=== PATIENT | male | born 1975 | race Asian ===

== ENCOUNTER 2021-01-06 11:18 | Inpatient (IN) ==
[2021-01-06] MEDS ORDERED: ACETAMINOPHEN 500 MG TAB PO STA (12:23)
[2021-01-06] MEDS ORDERED: SODIUM CHLORIDE 0.9% 1000ML 1,000 ML IV ONE ×3 (12:23→14:33)
--- NOTE | 2021-01-06 12:27 | Emergency Department Note ---
History of Present Illness General Chief complaint: Unable to Void Stated complaint: FEVER,CHILLS,CAN'T PEE X1DAY,NEG COVID TEST 8-18 Time Seen by Provider: 01/06/21 12:01 Source: patient Mode of arrival: ambulatory Limitations: no limitations History of Present Illness Maximum Pain Intensity: 8 This patient is a 45-year-old male who presents to the emergency department for evaluation of fevers and decreased urination. Patient states that he has had a consistent fever for the past 5 days. Temperatures have been around 103 F and decreased slightly with Tylenol/ibuprofen, but never completely resolved. He pittman s some body aches, some abdominal and back pain. He has had diarrhea which started yesterday. Patient was seen at the [facility] emergency department 2 days ago and had blood work performed, which showed slight elevations of his liver functions and kidney function. He had a negative COVID-19 test at that time. He had a urinalysis but they have not yet received the results of this. Patient reports he has had decreased urination since yesterday. He has not urinated in the past 9 hours, despite drinking plenty of fluids. He reports body aches at this time and rates his discomfort an 8/10. He denies any neck pain/stiffness or headache. He denies any recent tick bites. Denies cough or shortness of breath. Home Medications Medication Instructions Recorded Confirmed Type acetaminophen 500 mg tablet 500 mg PO Q6H PRN 01/06/21 01/06/21 History (Tylenol Extra Strength) esomeprazole magnesium 20 mg 20 mg PO DAILY 01/06/21 01/06/21 History capsule,delayed release (Nexium) Allergies Allergy/AdvReac Type Severity Reaction Status Date / Time shellfish derived Allergy Severe Swelling Unverified 01/06/21 13:41 including Face Egg Derived Allergy Intermediate Abdominal Unverified 01/06/21 13:41 Pain and Constipation Past Med/Surg History Medical History No significant past medical history Surgical History No significant past surgical history Social History Smoking Status: Current every day smoker Tobacco Type: Cigarettes Hx Alcohol Use: No Hx Substance Use: No Preferred Language: Tuvaluan Communication Ability: Effective Template Reproduction Technician Required: No Beliefs That Will Affect Care: None Current Living Situation: Spouse Feels Safe at Home: Yes Safety Concerns: Feels Safe At This Time Review of Systems A total of 10 systems reviewed and were otherwise negative Physical Exam Vital Signs Vital Signs - 24 hr 01/06/21 11:22 01/06/21 11:57 01/06/21 12:02 Temperature 37.1 C 39.4 C H Temperature Source Temporal Artery Scan Oral Pulse Rate 124 H 123 H Pulse Rate [Left Apical] 122 H Pulse Rate from SpO2 Sensor 124 H Pulse Rhythm Regular Pulse Rhythm [Left Apical] Regular Pulse Strength Normal Pulse Strength [Left Apical] Normal Respiratory Rate 19 22 25 H Respiratory Effort / Characteristics Non-Labored Spontaneous Non-Labored Spontaneous Respiratory Depth Normal Normal Respiratory Pattern Regular Regular Blood Pressure 107/71 119/71 Blood Pressure [Left Arm] 119/71 Blood Pressure Mean 83 87 Blood Pressure Mean [Left Arm] 87 Blood Pressure Position [Left Arm] Lying Pulse Oximetry 96 92 92 Oxygen Delivery Method Room Air Room Air Sepsis Recent Fever Within 48 Hours No Sepsis New/Unexplained Change in Mental Status No Sepsis Action Taken by Nursing No Action Required 01/06/21 12:15 01/06/21 12:30 01/06/21 12:45 Temperature Temperature Source Pulse Rate 121 H 120 H 117 H Pulse Rate [Left Apical] Pulse Rate from SpO2 Sensor 121 H 119 H 117 H Pulse Rhythm Pulse Rhythm [Left Apical] Pulse Strength Pulse Strength [Left Apical] Respiratory Rate 18 23 24 Respiratory Effort / Characteristics Respiratory Depth Respiratory Pattern Blood Pressure 133/71 108/69 114/68 Blood Pressure [Left Arm] Blood Pressure Mean 91 82 83 Blood Pressure Mean [Left Arm] Blood Pressure Position [Left Arm] Pulse Oximetry 91 95 94 Oxygen Delivery Method Sepsis Recent Fever Within 48 Hours Sepsis New/Unexplained Change in Mental Status Sepsis Action Taken by Nursing 01/06/21 13:00 01/06/21 14:22 01/06/21 14:30 Temperature 37.5 C Temperature Source Pulse Rate 113 H 108 H 108 H Pulse Rate [Left Apical] Pulse Rate from SpO2 Sensor 113 H 108 H 107 H Pulse Rhythm Pulse Rhythm [Left Apical] Pulse Strength Pulse Strength [Left Apical] Respiratory Rate 22 36 H 27 H Respiratory Effort / Characteristics Respiratory Depth Respiratory Pattern Blood Pressure 90/54 L 109/64 105/59 L Blood Pressure [Left Arm] Blood Pressure Mean 66 79 74 Blood Pressure Mean [Left Arm] Blood Pressure Position [Left Arm] Pulse Oximetry 94 94 94 Oxygen Delivery Method Sepsis Recent Fever Within 48 Hours Sepsis New/Unexplained Change in Mental Status Sepsis Action Taken by Nursing 01/06/21 14:45 01/06/21 15:00 01/06/21 16:00 Temperature Temperature Source Pulse Rate 106 H 105 H 103 H Pulse Rate [Left Apical] Pulse Rate from SpO2 Sensor 105 H 106 H 104 H Pulse Rhythm Pulse Rhythm [Left Apical] Pulse Strength Pulse Strength [Left Apical] Respiratory Rate 17 22 24 Respiratory Effort / Characteristics Respiratory Depth Respiratory Pattern Blood Pressure 93/63 L 107/68 103/76 Blood Pressure [Left Arm] Blood Pressure Mean 73 81 85 Blood Pressure Mean [Left Arm] Blood Pressure Position [Left Arm] Pulse Oximetry 94 95 94 Oxygen Delivery Method Sepsis Recent Fever Within 48 Hours Sepsis New/Unexplained Change in Mental Status Sepsis Action Taken by Nursing 01/06/21 16:15 01/06/21 16:30 01/06/21 16:45 Temperature Temperature Source Pulse Rate 102 H 102 H 105 H Pulse Rate [Left Apical] Pulse Rate from SpO2 Sensor 103 H 101 H 105 H Pulse Rhythm Pulse Rhythm [Left Apical] Pulse Strength Pulse Strength [Left Apical] Respiratory Rate 29 H 22 26 H Respiratory Effort / Characteristics Respiratory Depth Respiratory Pattern Blood Pressure 95/70 L 92/73 L 101/85 Blood Pressure [Left Arm] Blood Pressure Mean 78 79 90 Blood Pressure Mean [Left Arm] Blood Pressure Position [Left Arm] Pulse Oximetry 94 95 94 Oxygen Delivery Method Sepsis Recent Fever Within 48 Hours Sepsis New/Unexplained Change in Mental Status Sepsis Action Taken by Nursing 01/06/21 17:00 Temperature Temperature Source Pulse Rate 105 H Pulse Rate [Left Apical] Pulse Rate from SpO2 Sensor 104 H Pulse Rhythm Pulse Rhythm [Left Apical] Pulse Strength Pulse Strength [Left Apical] Respiratory Rate 25 H Respiratory Effort / Characteristics Respiratory Depth Respiratory Pattern Blood Pressure 94/64 L Blood Pressure [Left Arm] Blood Pressure Mean 74 Blood Pressure Mean [Left Arm] Blood Pressure Position [Left Arm] Pulse Oximetry 95 Oxygen Delivery Method Sepsis Recent Fever Within 48 Hours Sepsis New/Unexplained Change in Mental Status Sepsis Action Taken by Nursing VITALS: Vitals are noted on the nurse's note and reviewed by myself. GENERAL: This is a 45-year-old male, ill-appearing, slightly diaphoretic. SKIN: The skin was without rashes. EARS: External auditory canals clear, tympanic membranes pearly glass without erythema or effusion bilaterally. EYES: Pupils equal round and reactive to light and accommodation. NOSE: Patent, turbinates without inflammation or discharge. MOUTH: Mucous membranes moist. Tonsils are not enlarged. Pharynx without erythema or exudate. NECK: Supple without nuchal rigidity. No lymphadenopathy. HEART: Tachycardic, regular rhythm without murmurs gallops or rubs. LUNGS: Clear to auscultation bilaterally without wheezes, rales or rhonchi. No retractions or accessory muscle use. ABDOMEN: Positive bowel sounds x 4. Soft, mild suprapubic tenderness to palpation. NEURO: Patient was alert and oriented to person place and time. Course Consultations Consultation #1: Dr. Reyes - [facility] [place] hospitalist Consultation #2: Dr. Bolton - general surgery Administered Medications Lactated Ringer's (Lr) 1,000 mls @ 150 mls/hr IV .Q6H40M EVIE Stop: 01/07/21 08:56 Last Admin: 01/06/21 21:04 Dose: 150 mls/hr Documented by: [id number] Discontinued Medications Acetaminophen (Acetaminophen 500 Mg Tab) 1,000 mg PO NOW STA Stop: 01/06/21 12:24 Last Admin: 01/06/21 12:34 Dose: 1,000 mg Documented by: [id number] Diphenhydramine HCl (Diphenhydramine 50 Mg/Ml Vial) 25 mg IV NOW STA Stop: 01/06/21 14:35 Last Admin: 01/06/21 15:10 Dose: 25 mg Documented by: [id number] Sodium Chloride (Nss 1000ml) 1,000 mls @ 999 mls/hr IV .Q1H1M ONE Stop: 01/06/21 13:23 Last Infusion: 01/06/21 13:36 Dose: 0 mls/hr Documented by: [id number] Admin: 01/06/21 12:35 Dose: 999 mls/hr Documented by: [id number] Ceftriaxone Sodium (Rocephin) 2,000 mg in 70 mls @ 140 mls/hr IV NOW STA Stop: 01/06/21 13:40 Last Infusion: 01/06/21 14:28 Dose: 0 mls/hr Documented by: [id number] Admin: 01/06/21 13:36 Dose: 140 mls/hr Documented by: [id number] Sodium Chloride (Nss 1000ml) 1,000 mls @ 999 mls/hr IV .Q1H1M ONE Stop: 01/06/21 14:11 Last Infusion: 01/06/21 14:28 Dose: 0 mls/hr Documented by: [id number] Admin: 01/06/21 13:36 Dose: 999 mls/hr Documented by: [id number] Sodium Chloride (Nss 1000ml) 500 mls @ 999 mls/hr IV .Q31M ONE Stop: 01/06/21 13:41 Last Admin: 01/06/21 17:05 Dose: Not Given Documented by: [id number] Doxycycline Hyclate 100 mg/ (Dextrose) 110 mls @ 50 mls/hr IV NOW STA Stop: 01/06/21 15:22 Last Infusion: 01/06/21 17:05 Dose: 0 mls/hr Documented by: [id number] Admin: 01/06/21 14:27 Dose: 50 mls/hr Documented by: [id number] Sodium Chloride (Nss 1000ml) 1,000 mls @ 999 mls/hr IV .Q1H1M ONE Stop: 01/06/21 15:33 Last Infusion: 01/06/21 17:05 Dose: 0 mls/hr Documented by: [id number] Admin: 01/06/21 15:10 Dose: 999 mls/hr Documented by: [id number] Piperacillin Sod/Tazobactam (Sod 4.5 gm/ Dextrose) 120 mls @ 240 mls/hr IV NOW ONE; Protocol Stop: 01/06/21 20:29 Last Infusion: 01/06/21 21:04 Dose: 0 mls/hr Documented by: [id number] Admin: 01/06/21 20:22 Dose: 240 mls/hr Documented by: [id number] Ioversol (Optiray 320 100ml) 94 ml IV ONCE ONE Stop: 01/06/21 14:50 Last Admin: 01/06/21 14:49 Dose: 1 ml Documented by: [id number] Levalbuterol HCl (Levalbuterol Hcl 0.63 Mg/3 Ml Neb) 0.63 mg NEB NOW STA Stop: 01/06/21 23:39 Last Admin: 01/07/21 00:00 Dose: 0.63 mg Documented by: [id number] Critical Care Time Critical Care Time: Yes Total Critical Care Time: 32 I have personally spent greater than 32 minutes of critical care time in the direct management of this patient. This includes bedside care, interpretation of diagnostic studies, and testing, discussion with consultants, patient, and family members, and other required patient management activities. This 32 minutes is in excess of all separately billable procedures. Medical Decision Making Differential Diagnosis Viral syndrome, otitis, pharyngitis, pneumonia, influenza, meningitis, urinary tract infection, sepsis, bacteremia, as well as other pathologies. Home Medications Current Medication List: was personally reviewed by me Laboratory Data Attestation: I reviewed the patient's lab results. Result diagrams: 01/06/21 12:00 01/06/21 12:00 Lab Results 01/06/21 01/06/21 01/06/21 Range/Units 12:00 12:00 12:00 WBC 22.13 H (4.8-10.8) K/uL RBC 4.64 L (4.7-6.1) M/uL Hgb 14.0 (14.0-18.0) g/dL Hct 40.2 L (42-52) % MCV 86.6 (80-100) fL MCH 30.2 (25-34) pg MCHC 34.8 (32-36) g/dL RDW Std Deviation 44.2 (36.4-46.3) fL RDW Coeff of Omar 14.0 (11.5-14.5) % Plt Count 240 (130-400) K/uL MPV 11.0 H (7.4-10.4) fL Immature Gran % (Auto) 1.1 % Neut % (Auto) 87.8 % Lymph % (Auto) 7.5 % Mcdonald % (Auto) 3.4 % Eos % (Auto) 0.1 % Baso % (Auto) 0.1 % Neut # (Auto) 19.42 H (1.4-6.5) K/uL Lymph # (Auto) 1.66 (1.2-3.4) K/uL Mcdonald # (Auto) 0.76 H (0.11-0.59) K/uL Eos # (Auto) 0.02 (0-0.5) K/uL Baso # (Auto) 0.02 (0-0.2) K/uL Immature Gran # (Auto) 0.25 H (0.00-0.02) K/uL Hypogranular Neuts 1+ Toxic Granulation 1+ Toxic Vacuolation 1+ Sodium 128 L (136-145) mmol/L Potassium 3.5 (3.5-5.1) mmol/L Chloride 96 L (98-107) mmol/L Carbon Dioxide 23 (21-32) mmol/L Anion Gap 9.0 (3-11) BUN 11 (7-18) mg/dl Creatinine 1.53 H (0.6-1.4) mg/dl Est Cr Clr Drug Dosing 75.1 ml/min Est GFR ( Amer) 62.7 ml/min Est GFR (Non-Af Amer) 54.1 ml/min BUN/Creatinine Ratio 6.9 L (10-20) Glucose 120 H (70-99) mg/dl Osmolality (280-300) mOsm/kg Lactate 1.3 (0.4-2.0) mmol/L Calcium 8.7 (8.5-10.1) mg/dl Magnesium (1.8-2.4) mg/dl Total Bilirubin 2.3 H (0.2-1) mg/dl AST 59 H (15-37) U/L ALT 77 (12-78) U/L Alkaline Phosphatase 121 H (45-117) U/L Total Creatine Kinase (39-308) U/L Total Protein 8.0 (6.4-8.2) gm/dl Albumin 3.0 L (3.4-5.0) gm/dl Globulin 5.0 H (2.5-4.0) gm/dl Albumin/Globulin Ratio 0.6 L (0.9-2) Lipase (73-393) U/L Procalcitonin (0-0.5) ng/ml Urine Color Urine Appearance (Clear) Urine pH (4.5-7.5) Ur Specific [place] (1.000-1.030) Urine Protein (Negative) Urine Glucose (UA) (Negative) Urine Ketones (Negative) Urine Blood (Negative) Urine Nitrite (Negative) Urine Bilirubin (Negative) Urine Urobilinogen (Negative) Ur Leukocyte Esterase (Negative) Urine WBC (Auto) (0-5) /hpf Urine RBC (Auto) (0-4) /hpf U Hyaline Cast (Auto) (0-5) /lpf U Epithel Cells (Auto) (0-5) /lpf Urine Bacteria (Auto) (Negative) Ur Renal Epithelial Cell Granular Casts (0) /lpf WBC Casts (0) /lpf Urine Yeast Anaplasma Smear See Comment Lyme Disease IgG Ab (Negative) Lyme Disease IgM Ab (Negative) COVID-19 Eval Order SARS-CoV-2 (PCR) (Negative) 01/06/21 01/06/21 01/06/21 Range/Units 12:00 12:00 12:00 WBC (4.8-10.8) K/uL RBC (4.7-6.1) M/uL Hgb (14.0-18.0) g/dL Hct (42-52) % MCV (80-100) fL MCH (25-34) pg MCHC (32-36) g/dL RDW Std Deviation (36.4-46.3) fL RDW Coeff of Omar (11.5-14.5) % Plt Count (130-400) K/uL MPV (7.4-10.4) fL Immature Gran % (Auto) % Neut % (Auto) % Lymph % (Auto) % Mcdonald % (Auto) % Eos % (Auto) % Baso % (Auto) % Neut # (Auto) (1.4-6.5) K/uL Lymph # (Auto) (1.2-3.4) K/uL Mcdonald # (Auto) (0.11-0.59) K/uL Eos # (Auto) (0-0.5) K/uL Baso # (Auto) (0-0.2) K/uL Immature Gran # (Auto) (0.00-0.02) K/uL Hypogranular Neuts Toxic Granulation Toxic Vacuolation Sodium (136-145) mmol/L Potassium (3.5-5.1) mmol/L Chloride (98-107) mmol/L Carbon Dioxide (21-32) mmol/L Anion Gap (3-11) BUN (7-18) mg/dl Creatinine (0.6-1.4) mg/dl Est Cr Clr Drug Dosing ml/min Est GFR ( Amer) ml/min Est GFR (Non-Af Amer) ml/min BUN/Creatinine Ratio (10-20) Glucose (70-99) mg/dl Osmolality (280-300) mOsm/kg Lactate (0.4-2.0) mmol/L Calcium (8.5-10.1) mg/dl Magnesium (1.8-2.4) mg/dl Total Bilirubin (0.2-1) mg/dl AST (15-37) U/L ALT (12-78) U/L Alkaline Phosphatase (45-117) U/L Total Creatine Kinase 708 H (39-308) U/L Total Protein (6.4-8.2) gm/dl Albumin (3.4-5.0) gm/dl Globulin (2.5-4.0) gm/dl Albumin/Globulin Ratio (0.9-2) Lipase 439 H (73-393) U/L Procalcitonin (0-0.5) ng/ml Urine Color Urine Appearance (Clear) Urine pH (4.5-7.5) Ur Specific [place] (1.000-1.030) Urine Protein (Negative) Urine Glucose (UA) (Negative) Urine Ketones (Negative) Urine Blood (Negative) Urine Nitrite (Negative) Urine Bilirubin (Negative) Urine Urobilinogen (Negative) Ur Leukocyte Esterase (Negative) Urine WBC (Auto) (0-5) /hpf Urine RBC (Auto) (0-4) /hpf U Hyaline Cast (Auto) (0-5) /lpf U Epithel Cells (Auto) (0-5) /lpf Urine Bacteria (Auto) (Negative) Ur Renal Epithelial Cell Granular Casts (0) /lpf WBC Casts (0) /lpf Urine Yeast Anaplasma Smear Lyme Disease IgG Ab Negative (Negative) Lyme Disease IgM Ab Negative (Negative) COVID-19 Eval Order SARS-CoV-2 (PCR) (Negative) 01/06/21 01/06/21 01/06/21 Range/Units 12:00 12:00 12:00 WBC (4.8-10.8) K/uL RBC (4.7-6.1) M/uL Hgb (14.0-18.0) g/dL Hct (42-52) % MCV (80-100) fL MCH (25-34) pg MCHC (32-36) g/dL RDW Std Deviation (36.4-46.3) fL RDW Coeff of Omar (11.5-14.5) % Plt Count (130-400) K/uL MPV (7.4-10.4) fL Immature Gran % (Auto) % Neut % (Auto) % Lymph % (Auto) % Mcdonald % (Auto) % Eos % (Auto) % Baso % (Auto) % Neut # (Auto) (1.4-6.5) K/uL Lymph # (Auto) (1.2-3.4) K/uL Mcdonald # (Auto) (0.11-0.59) K/uL Eos # (Auto) (0-0.5) K/uL Baso # (Auto) (0-0.2) K/uL Immature Gran # (Auto) (0.00-0.02) K/uL Hypogranular Neuts Toxic Granulation Toxic Vacuolation Sodium (136-145) mmol/L Potassium (3.5-5.1) mmol/L Chloride (98-107) mmol/L Carbon Dioxide (21-32) mmol/L Anion Gap (3-11) BUN (7-18) mg/dl Creatinine (0.6-1.4) mg/dl Est Cr Clr Drug Dosing ml/min Est GFR ( Amer) ml/min Est GFR (Non-Af Amer) ml/min BUN/Creatinine Ratio (10-20) Glucose (70-99) mg/dl Osmolality 266 L (280-300) mOsm/kg Lactate (0.4-2.0) mmol/L Calcium (8.5-10.1) mg/dl Magnesium 2.1 (1.8-2.4) mg/dl Total Bilirubin (0.2-1) mg/dl AST (15-37) U/L ALT (12-78) U/L Alkaline Phosphatase (45-117) U/L Total Creatine Kinase (39-308) U/L Total Protein (6.4-8.2) gm/dl Albumin (3.4-5.0) gm/dl Globulin (2.5-4.0) gm/dl Albumin/Globulin Ratio (0.9-2) Lipase (73-393) U/L Procalcitonin 6.54 H (0-0.5) ng/ml Urine Color Urine Appearance (Clear) Urine pH (4.5-7.5) Ur Specific [place] (1.000-1.030) Urine Protein (Negative) Urine Glucose (UA) (Negative) Urine Ketones (Negative) Urine Blood (Negative) Urine Nitrite (Negative) Urine Bilirubin (Negative) Urine Urobilinogen (Negative) Ur Leukocyte Esterase (Negative) Urine WBC (Auto) (0-5) /hpf Urine RBC (Auto) (0-4) /hpf U Hyaline Cast (Auto) (0-5) /lpf U Epithel Cells (Auto) (0-5) /lpf Urine Bacteria (Auto) (Negative) Ur Renal Epithelial Cell Granular Casts (0) /lpf WBC Casts (0) /lpf Urine Yeast Anaplasma Smear Lyme Disease IgG Ab (Negative) Lyme Disease IgM Ab (Negative) COVID-19 Eval Order SARS-CoV-2 (PCR) (Negative) 01/06/21 01/06/21 01/06/21 Range/Units 12:20 12:44 12:44 WBC (4.8-10.8) K/uL RBC (4.7-6.1) M/uL Hgb (14.0-18.0) g/dL Hct (42-52) % MCV (80-100) fL MCH (25-34) pg MCHC (32-36) g/dL RDW Std Deviation (36.4-46.3) fL RDW Coeff of Omar (11.5-14.5) % Plt Count (130-400) K/uL MPV (7.4-10.4) fL Immature Gran % (Auto) % Neut % (Auto) % Lymph % (Auto) % Mcdonald % (Auto) % Eos % (Auto) % Baso % (Auto) % Neut # (Auto) (1.4-6.5) K/uL Lymph # (Auto) (1.2-3.4) K/uL Mcdonald # (Auto) (0.11-0.59) K/uL Eos # (Auto) (0-0.5) K/uL Baso # (Auto) (0-0.2) K/uL Immature Gran # (Auto) (0.00-0.02) K/uL Hypogranular Neuts Toxic Granulation Toxic Vacuolation Sodium (136-145) mmol/L Potassium (3.5-5.1) mmol/L Chloride (98-107) mmol/L Carbon Dioxide (21-32) mmol/L Anion Gap (3-11) BUN (7-18) mg/dl Creatinine (0.6-1.4) mg/dl Est Cr Clr Drug Dosing ml/min Est GFR ( Amer) ml/min Est GFR (Non-Af Amer) ml/min BUN/Creatinine Ratio (10-20) Glucose (70-99) mg/dl Osmolality (280-300) mOsm/kg Lactate (0.4-2.0) mmol/L Calcium (8.5-10.1) mg/dl Magnesium (1.8-2.4) mg/dl Total Bilirubin (0.2-1) mg/dl AST (15-37) U/L ALT (12-78) U/L Alkaline Phosphatase (45-117) U/L Total Creatine Kinase (39-308) U/L Total Protein (6.4-8.2) gm/dl Albumin (3.4-5.0) gm/dl Globulin (2.5-4.0) gm/dl Albumin/Globulin Ratio (0.9-2) Lipase (73-393) U/L Procalcitonin (0-0.5) ng/ml Urine Color [place] Urine Appearance Cloudy A (Clear) Urine pH 5.5 (4.5-7.5) Ur Specific [place] 1.026 (1.000-1.030) Urine Protein 3+ H (Negative) Urine Glucose (UA) Trace H (Negative) Urine Ketones Trace H (Negative) Urine Blood 3+ H (Negative) Urine Nitrite Positive A (Negative) Urine Bilirubin 2+ H (Negative) Urine Urobilinogen Negative (Negative) Ur Leukocyte Esterase 1+ H (Negative) Urine WBC (Auto) 10-30 H (0-5) /hpf Urine RBC (Auto) 5-10 H (0-4) /hpf U Hyaline Cast (Auto) >30 H (0-5) /lpf U Epithel Cells (Auto) >30 H (0-5) /lpf Urine Bacteria (Auto) Negative (Negative) Ur Renal Epithelial Cell Not Reportable Granular Casts >30 H (0) /lpf WBC Casts 1-5 H (0) /lpf Urine Yeast Not Reportable Anaplasma Smear Lyme Disease IgG Ab (Negative) Lyme Disease IgM Ab (Negative) COVID-19 Eval Order Covid19 at [facility] [place] SARS-CoV-2 (PCR) NEGATIVE (Negative) Imaging Data Attestation: I personally reviewed and interpreted this imaging study as follows: Radiologist's Impression: Abdomen/Pelvis CT 01/06/21 12:23 CT SCAN OF THE ABDOMEN AND PELVIS WITHOUT CONTRAST CLINICAL HISTORY: abdominal/back pain, fever COMPARISON STUDY: No previous studies for comparison. TECHNIQUE: CT scan of the abdomen and pelvis was performed from the lung bases to the proximal femurs. Images are reviewed in the axial, sagittal, and coronal planes. IV contrast was not administered for this examination. A dose lowering technique was utilized adhering to the principles of ALARA. CT DOSE: 1325.31 mGy.cm FINDINGS: Lower chest: Minimal atelectasis is seen at dependent portion of the right lower lobe. Liver: The unenhanced liver is enlarged measuring 20.9 cm in anterior-posterior dimension and shows diffuse decrease in attenuation of its parenchyma. No evidence of focal lesions or intrahepatic biliary dilatation. Gallbladder: Unremarkable. Spleen: Normal in size and attenuation. Pancreas: There is loss of normal pancreatic contour at the region of pancreatic body and uncinate process with diffuse surrounding fat stranding which also extends to the lower abdomen and pelvic region and associated with multiple prom inent lymph nodes. Adrenal glands: Unremarkable. Kidneys: The unenhanced kidneys are normal in size. No definite hydronephrosis is seen. No renal calculi are identified. Asymmetrical fat stranding is seen surrounding right kidney. Bowel: Loops of bowel are nondilated. Possibly small duodenal diverticulum is demonstrated. Evaluation is suboptimal due to lack of IV contrast. Appendix is slightly dilated measuring up to 10 mm in diameter. No definite periappendiceal abscess/fluid collection is seen however there is diffuse fat stranding within the right lower quadrant appear to be continuous with peripancreatic fat s tranding. Peritoneum: There is no intraperitoneal free air or abdominal ascites. Vasculature: The abdominal aorta is normal in course and caliber. Adenopathy: Innumerable retroperitoneal lymph nodes measuring up to 1.3 cm in short axis. Pelvic viscera: Urinary bladder is decompressed which limits evaluation. Prostate gland is not enlarged. Skeletal structures: No definite aggressive osseous lesions are seen. IMPRESSION: 1. Mesenteric fat stranding involving pancreatic head and uncinate process also extend into the right lower quadrant and also associated with dilated appendix could be due to inflammatory processes such as pancreatitis or developing appendicitis however due to prominent lymphadenopathy findings are concerning for neoplastic process which might involve pancreas, appendix or duodenum. Farhana luation is suboptimal due to lack of IV contrast. Further evaluation with contrast CT of the abdomen and pelvis is recommended. Findings will be sent to emergency Department. 2. Hepatomegaly. Hepatic steatosis. 3. The rest of findings as above. ACT 112: Negative or not required by law. The above report was generated using voice recognition software. It may contain grammatical, syntax or spelling errors. Electronically signed by: Aracelis Au DO 01/06/2021 2:19 PM Chest X-Ray 01/06/21 12:36 SINGLE VIEW CHEST CLINICAL HISTORY: Fever. FINDINGS: An AP, portable, upright chest radiograph is obtained. No prior studies are available for comparison at the time of dictation. The cardiomedia stinal silhouette is unremarkable. There is elevation of the right hemidiaphragm. The lungs and pleural spaces are clear. No pneumothorax is seen. The bony thorax is grossly intact. IMPRESSION: No active disease in the chest. ACT 112: Negative or not required by law. Electronically signed by: Bharath Whitley M.D. 01/06/2021 1:17 PM Abdomen/Pelvis CT 01/06/21 14:33 CT abd pelvis IV con only CLINICAL HISTORY: abdominal pain, fever COMPARISON STUDY: Noncontrast CT of the abdomen and pelvis performed on January 06, 2021 at 13:24 hours. TECHNIQUE: A dose lowering technique was utilized adhering to the principles of ALARA. CT DOSE: 1322.68 mGy.cm FINDINGS: Lower chest: Interval worsening of atelectasis within right lower lobe.. Liver: The contrast-enhanced liver is normal in size, contour, and attenuation. There is no intrahepatic biliary ductal dilatation. The hepatic veins and portal veins are patent. Recently seen hepatic steatosis is not visualized on this enhanced exam. Gallbladder: Unremarkable. Spleen: Normal in size and attenuation. Pancreas: Contrast-enhanced pancreas shows normal appearance and show no evid ence of hyper or hypoattenuating mass lesions or dilatation of the pancreatic duct. There is mild fat stranding surrounding pancreas and adjacent nondilated portion of the duodenum. Adrenal glands: Unremarkable. Kidneys: There is symmetric renal cortical enhancement. The kidneys are normal in size without hydronephrosis.Mild perinephric fat stranding is seen mostly on the right. Pelvic viscera: The bladder, and pelvic viscera are unremarkable. Bowel: Bowel loops are nondilated. Dilated appendix measure up to 1.1 cm in size with surrounding fat stranding and multiple prominent lymph nodes. No evidence of fluid collection within right lower quadrant. Peritoneum: There is no intraperitoneal free air or abdominal ascites. Redemonstration of peripancreatic fat stranding which also involve adjacent loop of bowel and extending to the right lower quadrant and associated with multiple prominent lymph nodes. There is 1.1 cm rounded soft tissue lesion within left upper quadrant concerning for metastatic process. Vasculature: The abdominal aorta is normal in course and caliber. Adenopathy: Innumerable retroperitoneal lymph nodes are seen measuring up to 1.1 cm in size, seen predominantly within mid abdominal region Skeletal structures: No destructive osseous lesions are seen. IMPRESSION: 1. No evidence of focal pancreatic lesion to suggest neoplastic process. Diffuse peripancreatic fat stranding which also extend to adjacent loops of bowel and to the right lower quadrant might represent acute pancreatitis or/and duodenitis. Presence of multiple prominent retroperitoneal and mesenteric lymph nodes is also concerning for neoplastic process. Appendix is dilated without gas within its lumen and no surrounding fluid collection to suggest abscess formation. Differential diagnosis include neoplasm or acute appendicitis. Nodule within left upper quadrant might represent metastatic lesion. 2. Interval worsening of atelectasis within the right lower lobe. ACT 112: Negative or not required by law. The above report was generated using voice recognition software. It may contain grammatical, syntax or spelling errors. 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 Patient was noted to be in sinus tachycardia at an initial rate of 120 bpm. The patient is a 45-year-old male who presents today complaining of a fever which has been ongoing for the past 5 days. Patient is ill-appearing on arrival here. He is tachycardic and has a temperature of 39.5 C. He does meet sepsis criteria. He was given 3 L of IV fluids to meet the 30 mL/kg based on his ideal body weight. Blood cultures were drawn. Labs revealed a leukocytosis of 22,000, hyponatremia, mild elevation of his creatinine and elevation of LFTs. Initial testing for tickborne illness was negative. Urinalysis suggestive of possible infection, with positive nitrite, however bacteria were negative. Of note, patient did have a urinalysis performed at [facility] 2 days ago. This did appear to be possibly infected, however the culture was negative. A CT of the abdomen/pelvis was performed, initially without contrast which show ed questionable findings, CT with contrast was advised. A CT with IV contrast was performed and showed questionable pancreatitis/duodenitis as well as dilatation of the appendix concerning for possible appendicitis versus neoplasm. Patient also noted to have several enlarged lymph nodes within the abdomen. The case was discussed with general surgery, who will consult on the patient. Patient's vital signs did improve somewhat with IV fluid administration. He was given IV Rocephin as well as doxycycline on arrival for possible tickborne illness versus urinary tract infection. [facility] agreed to evaluate the patient for further care. Impression & Plan Sepsis, Pancreatitis, Leukocytosis, Acute hyponatremia Discharge Plan Visit Data Chief Complaint: Unable to Void Stated Complaint: FEVER,CHILLS,CAN'T PEE X1DAY,NEG COVID TEST 8-18 ED Provider: [facility] Midlevel Provider: Jeannine Thomason Discharge Problem: Sepsis, Pancreatitis, Leukocytosis, Acute hyponatremia Patient Disposition: Admitted As Inpatient Discharge Instructions Interventions: ED Discharge Assessment Last Done: 01/06/21 18:31
[2021-01-06 12:32] LABS: Basophils # (auto) 0.02 K/uL (0-0.2); Basophils % (auto) 0.1 %; Eosinophils # (auto) 0.02 K/uL (0-0.5); Eosinophils % (auto) 0.1 %; Hematocrit (blood only) 40.2 % (42-52); Immature Granulocytes # (auto) 0.25 K/uL (0.00-0.02); Immature Granulocytes % (auto) 1.1 %; Lymphocytes # (auto) 1.66 K/uL (1.2-3.4); Lymphocytes % (auto) 7.5 %; Mean Corpuscular Hemoglobin 30.2 pg (25-34); Mean Corpuscular Hgb Conc 34.8 g/dL (32-36); Mean Corpuscular Volume 86.6 fL (80-100); Monocytes # (auto) 0.76 K/uL (0.11-0.59); Monocytes % (auto) 3.4 %; Neutrophils # (auto) 19.42 K/uL (1.4-6.5); Neutrophils % (auto) 87.8 %; Platelet Count 240 K/uL (130-400); RDW Standard Deviation 44.2 fL (36.4-46.3); Red Blood Count 4.64 M/uL (4.7-6.1); White Blood Count 22.13 K/uL (4.8-10.8)
[2021-01-06 12:43] LABS: BUN Creatinine Ratio 6.9 (10-20); Calcium 8.7 mg/dl (8.5-10.1); Creatinine Clr Calc Pharmacy 75.1 ml/min; Est GFR (African American) 62.7 ml/min; Est GFR (Non-African American) 54.1 ml/min; Potassium 3.5 mmol/L (3.5-5.1)
[2021-01-06 12:50] LABS: Albumin Globulin Ratio 0.6 (0.9-2); Bilirubin,Total 2.3 mg/dl (0.2-1)
[2021-01-06 13:11] LABS: Appearance Urine Cloudy (Clear); Bacteria Urine Automated Negative (Negative); Blood Urine 3+ (Negative); Color Urine Orange; Epithelial Cell Urine Auto >30 /lpf (0-5); Glucose Urine UA Trace (Negative); Ketones Urine Trace (Negative); Leukocyte Esterase Urine 1+ (Negative); Nitrite Urine Positive (Negative); Protein Urine 3+ (Negative); Specific Gravity Urine 1.026 (1.000-1.030); Urobilinogen Urine Negative (Negative); pH Urine 5.5 (4.5-7.5)
[2021-01-06] MEDS ORDERED: cefTRIAXone SODIUM 2,000 MG/70 ML BAG IV STA (13:11)
[2021-01-06] MEDS ORDERED: SODIUM CHLORIDE 0.9% 1000ML 500 ML IV ONE (13:11)
[2021-01-06] MEDS ORDERED: DOXYCYCLINE HYCLATE 100 MG in DEXTROSE 5% 100 ML IV STA (13:11)
[2021-01-06 13:14] LABS: Bilirubin Urine 2+ (Negative)
[2021-01-06 13:16] LABS: Hypogranular Neutrophils 1+; Toxic Granulation 1+; Toxic Vacuolation 1+
--- NOTE | 2021-01-06 13:19 | XRay Report ---
SINGLE VIEW CHEST CLINICAL HISTORY: Fever. FINDINGS: An AP, portable, upright chest radiograph is obtained. No prior studies are available for c omparison at the time of dictation. The cardiomediastinal silhouette is unremarkable. There is eleva tion of the right hemidiaphragm. The lungs and pleural spaces are clear. No pneumothorax is seen. The bony thorax is grossly intact. IMPRESSION: No active disease in the chest. ACT 112: Negative or not required by law. Electronically signed by: Bharath Whitley M.D. 01/06/2021 1:17 PM
[2021-01-06 13:27] LABS: Cast Urine Automated >30 /lpf (0-5); Granular Casts Urine >30 /lpf (0)
[2021-01-06 13:31] LABS: Lyme Ab IgG w/WB Rflx Negative (Negative); Lyme Ab IgM w/WB Rflx Negative (Negative)
--- NOTE | 2021-01-06 14:20 | CT Scan Report ---
CT SCAN OF THE ABDOMEN AND PELVIS WITHOUT CONTRAST CLINICAL HISTORY: abdominal/back pain, fever COMPARISON STUDY: No previous studies for comparison. TECHNIQUE: CT scan of the abdomen and pelvis was performed from the lung bases to the proximal femurs . Images are reviewed in the axial, sagittal, and coronal planes. IV contrast was not administered fo r this examination. A dose lowering technique was utilized adhering to the principles of ALARA. CT DOSE: 1325.31 mGy.cm FINDINGS: Lower chest: Minimal atelectasis is seen at dependent portion of the right lower lobe. Liver: The unenhanced liver is enlarged measuring 20.9 cm in anterior-posterior dimension and shows d iffuse decrease in attenuation of its parenchyma. No evidence of focal lesions or intrahepatic biliar y dilatation. Gallbladder: Unremarkable. Spleen: Normal in size and attenuation. Pancreas: There is loss of normal pancreatic contour at the region of pancreatic body and uncinate pr ocess with diffuse surrounding fat stranding which also extends to the lower abdomen and pelvic regio n and associated with multiple prominent lymph nodes. Adrenal glands: Unremarkable. Kidneys: The unenhanced kidneys are normal in size. No definite hydronephrosis is seen. No renal calc alyce are identified. Asymmetrical fat stranding is seen surrounding right kidney. Bowel: Loops of bowel are nondilated. Possibly small duodenal diverticulum is demonstrated. Evaluatio n is suboptimal due to lack of IV contrast. Appendix is slightly dilated measuring up to 10 mm in marco meter. No definite periappendiceal abscess/fluid collection is seen however there is diffuse fat str anding within the right lower quadrant appear to be continuous with peripancreatic fat stranding. Peritoneum: There is no intraperitoneal free air or abdominal ascites. Vasculature: The abdominal aorta is normal in course and caliber. Adenopathy: Innumerable retroperitoneal lymph nodes measuring up to 1.3 cm in short axis. Pelvic viscera: Urinary bladder is decompressed which limits evaluation. Prostate gland is not enlarg ed. Skeletal structures: No definite aggressive osseous lesions are seen. IMPRESSION: 1. Mesenteric fat stranding involving pancreatic head and uncinate process also extend into the righ t lower quadrant and also associated with dilated appendix could be due to inflammatory processes s uch as pancreatitis or developing appendicitis however due to prominent lymphadenopathy findings are concerning for neoplastic process which might involve pancreas, appendix or duodenum. Evaluation is s uboptimal due to lack of IV contrast. Further evaluation with contrast CT of the abdomen and pelvis i s recommended. Findings will be sent to emergency Department. 2. Hepatomegaly. Hepatic steatosis. 3. The rest of findings as above. ACT 112: Negative or not required by law. The above report was generated using voice recognition software. It may contain grammatical, syntax o r spelling errors. Electronically signed by: Aracelis Au DO 01/06/2021 2:19 PM
[2021-01-06] MEDS ORDERED: diphenhydrAMINE 50 MG/ML VIAL IV STA (14:34)
[2021-01-06] MEDS ORDERED: OPTIRAY 320 100ml IV ONE (14:49)
--- NOTE | 2021-01-06 15:47 | CT Scan Report ---
CT abd pelvis IV con only CLINICAL HISTORY: abdominal pain, fever COMPARISON STUDY: Noncontrast CT of the abdomen and pelvis performed on January 06, 2021 at 13:24 merissa rs. TECHNIQUE: A dose lowering technique was utilized adhering to the principles of ALARA. CT DOSE: 1322.68 mGy.cm FINDINGS: Lower chest: Interval worsening of atelectasis within right lower lobe.. Liver: The contrast-enhanced liver is normal in size, contour, and attenuation. There is no intrahepa tic biliary ductal dilatation. The hepatic veins and portal veins are patent. Recently seen hepatic s teatosis is not visualized on this enhanced exam. Gallbladder: Unremarkable. Spleen: Normal in size and attenuation. Pancreas: Contrast-enhanced pancreas shows normal appearance and show no evidence of hyper or hypoatt enuating mass lesions or dilatation of the pancreatic duct. There is mild fat stranding surrounding p ancreas and adjacent nondilated portion of the duodenum. Adrenal glands: Unremarkable. Kidneys: There is symmetric renal cortical enhancement. The kidneys are normal in size without hydron ephrosis.Mild perinephric fat stranding is seen mostly on the right. Pelvic viscera: The bladder, and pelvic viscera are unremarkable. Bowel: Bowel loops are nondilated. Dilated appendix measure up to 1.1 cm in size with surrounding fat stranding and multiple prominent lymph nodes. No evidence of fluid collection within right lower guero drant. Peritoneum: There is no intraperitoneal free air or abdominal ascites. Redemonstration of peripancrea tic fat stranding which also involve adjacent loop of bowel and extending to the right lower quadrant and associated with multiple prominent lymph nodes. There is 1.1 cm rounded soft tissue lesion within left upper quadrant concerning for metastatic proce ss. Vasculature: The abdominal aorta is normal in course and caliber. Adenopathy: Innumerable retroperitoneal lymph nodes are seen measuring up to 1.1 cm in size, seen pre dominantly within mid abdominal region Skeletal structures: No destructive osseous lesions are seen. IMPRESSION: 1. No evidence of focal pancreatic lesion to suggest neoplastic process. Diffuse peripancreatic fat stranding which also extend to adjacent loops of bowel and to the right lower quadrant might represen t acute pancreatitis or/and duodenitis. Presence of multiple prominent retroperitoneal and mesenteric lymph nodes is also concerning for neoplastic process. Appendix is dilated without gas within its tess men and no surrounding fluid collection to suggest abscess formation. Differential diagnosis include neoplasm or acute appendicitis. Nodule within left upper quadrant might represent metastatic lesion. 2. Interval worsening of atelectasis within the right lower lobe. ACT 112: Negative or not required by law. The above report was generated using voice recognition software. It may contain grammatical, syntax o r spelling errors. Electronically signed by: Aracelis Au DO 01/06/2021 3:45 PM
--- NOTE | 2021-01-06 17:04 | History & Physical Report ---
Date of Service January 06, 2021 Assessment & Plan (1) Sepsis: Plan: 45-year-old male with no significant past medical history presenting with 5 days of fever/chills/body aches 1 day of lower abdominal pain. He is febrile and tachycardic with neutrophil predominant leukocytosis, WBC = 22.13, elevated procalcitonin at 6.54. CT of the abdomen with diffuse peripancreatic fat stranding concerning for acute pancreatitis and/or duodenitis as well as presence of multiple prominent retroperitoneal and mesenteric lymph nodes concerning for neoplastic process. The appendix is also dilated without gas or fluid collection. Admit to medical with telemetry Follow culturesblood and urine sent in ER Check C. difficile, stool cultures Empiric treatment with Zosyn Dilated appendix concerning for acute appendicitis versus neoplasm. Will consult general surgery. Empiric Zosyn as above -?Need for biopsy to rule out possible malignancy (2) Pancreatitis: Plan: CT with peripancreatic stranding. Patient with mild elevation of lipase at 4.39. Do not strongly suspect the pancreatitis is the sole cause for the aforementioned symptoms. Calcium is normal We will keep patient n.p.o. for bowel rest IV fluids with LR at 150 mL/h x 2 L (3) Acute hyponatremia: Plan: Sodium = 128. Suspect volume depletion Check serum and urine awesome's Check urine sodium Monitor BMP daily (4) Lymphadenopathy: Plan: With marked lymphadenopathy noted on CAT scan. Concern for reactive in setting of infection/inflammation versus malignancy. These findings were discussed with patient and at bedside and they were informed that more work-up is needed at this time. Treatment as above General surgery consult appreciated (5) Decreased urine output: Plan: Patient with decreased urine output. Appears dry on clinical exam. Creatinine of 1.53 with unknown baseline. Musa recommended, patient refused. Recommend bladder scan with straight cath as needed Continue to monitor BUN, creatinine, urine output and electrolytes -Check CK IV fluids as above Plan: FENLR at 150 mL/h x 2 L, monitor electrolytes, n.p.o. for now Smoking cessation counseling and nicotine patch provided ProphylaxisSCDs Codefull Dispoadmit to medical telemetry History of Present Illness Chief Complaint: Abdominal pain Primary Care Provider: Galilea Juarez Gurmeet Saleh is a 45-year-old male with no significant past medical or surgical history presenting with 5 days of fever as well as body aches, abdominal pain and back pain. Patient reports that his fever began 5 days ago. He has had a fever daily as high as 104. Fever is temporarily relieved by Tylenol but then quickly returns, is associated with body aches and headache. Patient developed diarrhea yesterday. Several episodes of watery, nonbloody diarrhea. Today he developed low back pain as well as crampy, lower abdominal pain. He also notes decreased urination today. He was seen at [facility] with these complaints yesterday and was noted to have elevation of LFTs and creatinine. He was discharged home. Patient was recently on vacation at [place], [place] with friends. No sick contacts. He denies chest pain, palpitations, shortness of breath, nausea, vomiting, rash. No additional complaints at this time Upon arrival patient febrile at 39.4, tachycardic at 122 bpm, blood pressure at its lowest was 90/54. No respiratory distress, adequate oxygenation on room air. ER course: Ceftriaxone, doxycycline, Benadryl, Tylenol, normal saline x3 L Allergies Allergy/AdvReac Type Severity Reaction Status Date / Time shellfish derived Allergy Severe Swelling Unverified 01/06/21 13:41 including Face Egg Derived Allergy Intermediate Abdominal Unverified 01/06/21 13:41 Pain and Constipation Home Medications Medication Instructions Recorded Confirmed Type acetaminophen 500 mg tablet 500 mg PO Q6H PRN 01/06/21 01/06/21 History (Tylenol Extra Strength) esomeprazole magnesium 20 mg 20 mg PO DAILY 01/06/21 01/06/21 History capsule,delayed release (Nexium) Past Med/Surg History Medical History No significant past medical history Surgical History No significant past surgical history Social History Smoking Status: Current every day smoker Tobacco Type: Cigarettes Hx Alcohol Use: No Hx Substance Use: No Preferred Language: Thai Communication Ability: Effective Superintendent Logging Required: No Beliefs That Will Affect Care: None Current Living Situation: Spouse Feels Safe at Home: Yes Safety Concerns: Feels Safe At This Time Review of Systems Review of Systems: All systems reviewed & are unremarkable except as noted in HPI & below Physical Exam Physical Exam: General: patient resting comfortably, NAD, ill in appearance, AA&O x 4 Skin: warm, dry, intact, no rashes or lesions HEENT: NC/AT, PERRL, EOMI, anicteric sclera, conjunctiva without injection, external ear normal to inspection and nontender, nares patent, dry mucus membranes, dentition intact, no oropharyngeal lesions, neck supple, trachea midline, no LAD, no thyromegaly, no JVD Heart: +S1/S2, regular, no m/r/g Lungs: equal air entry bilaterally, no rales/rhonchi/wheezes Abd: +BS, soft, diffusely tender, slightly worse in the right lower quadrant, no rebound/guarding/peritoneal signs, ND, no masses/organomegaly/ascites Ext: warm, 2+ pulses in UE/LE bilaterally, no clubbing/cyanosis or edema Neuro: nonfocal, patient AA&O x 4, speech intact, no facial droop, moving all extremities on command with equal strength 5/5 Results & Data Results & Data ([facility]) Vital Signs (Past 12 Hours) Vital Signs Temp Pulse Pulse Resp BP BP Pulse Ox 01/06/21 16:00 103 H 24 103/76 94 01/06/21 15:00 105 H 22 107/68 95 01/06/21 14:45 106 H 17 93/63 L 94 01/06/21 14:30 108 H 27 H 105/59 L 94 01/06/21 14:22 37.5 C 108 H 36 H 109/64 94 01/06/21 13:00 113 H 22 90/54 L 94 01/06/21 12:45 117 H 24 114/68 94 01/06/21 12:30 120 H 23 108/69 95 01/06/21 12:15 121 H 18 133/71 91 01/06/21 12:02 123 H 25 H 119/71 92 01/06/21 11:57 39.4 C H 122 H 22 119/71 92 01/06/21 11:22 37.1 C 124 H 19 107/71 96 Laboratory Results Laboratory Results WBC 22.13 K/uL (4.8-10.8) H 01/06/21 12:00 RBC 4.64 M/uL (4.7-6.1) L 01/06/21 12:00 Hgb 14.0 g/dL (14.0-18.0) 01/06/21 12:00 Hct 40.2 % (42-52) L 01/06/21 12:00 MCV 86.6 fL (80-100) 01/06/21 12:00 MCH 30.2 pg (25-34) 01/06/21 12:00 MCHC 34.8 g/dL (32-36) 01/06/21 12:00 RDW Std Deviation 44.2 fL (36.4-46.3) 01/06/21 12:00 RDW Coeff of Omar 14.0 % (11.5-14.5) 01/06/21 12:00 Plt Count 240 K/uL (130-400) 01/06/21 12:00 MPV 11.0 fL (7.4-10.4) H 01/06/21 12:00 Immature Gran % (Auto) 1.1 % 01/06/21 12:00 Neut % (Auto) 87.8 % 01/06/21 12:00 Lymph % (Auto) 7.5 % 01/06/21 12:00 [place] % (Auto) 3.4 % 01/06/21 12:00 Eos % (Auto) 0.1 % 01/06/21 12:00 Baso % (Auto) 0.1 % 01/06/21 12:00 Neut # (Auto) 19.42 K/uL (1.4-6.5) H 01/06/21 12:00 Lymph # (Auto) 1.66 K/uL (1.2-3.4) 01/06/21 12:00 [place] # (Auto) 0.76 K/uL (0.11-0.59) H 01/06/21 12:00 Eos # (Auto) 0.02 K/uL (0-0.5) 01/06/21 12:00 Baso # (Auto) 0.02 K/uL (0-0.2) 01/06/21 12:00 Immature Gran # (Auto) 0.25 K/uL (0.00-0.02) H 01/06/21 12:00 Hypogranular Neuts 1+ 01/06/21 12:00 Toxic Granulation 1+ 01/06/21 12:00 Toxic Vacuolation 1+ 01/06/21 12:00 Sodium 128 mmol/L (136-145) L 01/06/21 12:00 Potassium 3.5 mmol/L (3.5-5.1) 01/06/21 12:00 Chloride 96 mmol/L (98-107) L 01/06/21 12:00 Carbon Dioxide 23 mmol/L (21-32) 01/06/21 12:00 Anion Gap 9.0 (3-11) 01/06/21 12:00 BUN 11 mg/dl (7-18) 01/06/21 12:00 Creatinine 1.53 mg/dl (0.6-1.4) H 01/06/21 12:00 Est Cr Clr Drug Dosing 75.1 ml/min 01/06/21 12:00 Est GFR ( Amer) 62.7 ml/min 01/06/21 12:00 Est GFR (Non-Af Amer) 54.1 ml/min 01/06/21 12:00 BUN/Creatinine Ratio 6.9 (10-20) L 01/06/21 12:00 Glucose 120 mg/dl (70-99) H 01/06/21 12:00 Lactate 1.3 mmol/L (0.4-2.0) 01/06/21 12:00 Calcium 8.7 mg/dl (8.5-10.1) 01/06/21 12:00 Magnesium 2.1 mg/dl (1.8-2.4) 01/06/21 12:00 Total Bilirubin 2.3 mg/dl (0.2-1) H 01/06/21 12:00 AST 59 U/L (15-37) H 01/06/21 12:00 ALT 77 U/L (12-78) 01/06/21 12:00 Alkaline Phosphatase 121 U/L (45-117) H 01/06/21 12:00 Total Creatine Kinase 708 U/L (39-308) H 01/06/21 12:00 Total Protein 8.0 gm/dl (6.4-8.2) 01/06/21 12:00 Albumin 3.0 gm/dl (3.4-5.0) L 01/06/21 12:00 Globulin 5.0 gm/dl (2.5-4.0) H 01/06/21 12:00 Albumin/Globulin Ratio 0.6 (0.9-2) L 01/06/21 12:00 Lipase 439 U/L (73-393) H 01/06/21 12:00 Procalcitonin 6.54 ng/ml (0-0.5) H 01/06/21 12:00 Urine Color [place] 01/06/21 12:20 Urine Appearance Cloudy (Clear) A 01/06/21 12:20 Urine pH 5.5 (4.5-7.5) 01/06/21 12:20 Ur Specific [place] 1.026 (1.000-1.030) 01/06/21 12:20 Urine Protein 3+ (Negative) H 01/06/21 12:20 Urine Glucose (UA) Trace (Negative) H 01/06/21 12:20 Urine Ketones Trace (Negative) H 01/06/21 12:20 Urine Blood 3+ (Negative) H 01/06/21 12:20 Urine Nitrite Positive (Negative) A 01/06/21 12:20 Urine Bilirubin 2+ (Negative) H 01/06/21 12:20 Urine Urobilinogen Negative (Negative) 01/06/21 12:20 Ur Leukocyte Esterase 1+ (Negative) H 01/06/21 12:20 Urine WBC (Auto) 10-30 /hpf (0-5) H 01/06/21 12:20 Urine RBC (Auto) 5-10 /hpf (0-4) H 01/06/21 12:20 U Hyaline Cast (Auto) >30 /lpf (0-5) H 01/06/21 12:20 U Epithel Cells (Auto) >30 /lpf (0-5) H 01/06/21 12:20 Urine Bacteria (Auto) Negative (Negative) 01/06/21 12:20 Ur Renal Epithelial Cell Not Reportable 01/06/21 12:20 Granular Casts >30 /lpf (0) H 01/06/21 12:20 WBC Casts 1-5 /lpf (0) H 01/06/21 12:20 Urine Yeast Not Reportable 01/06/21 12:20 Anaplasma Smear See Comment 01/06/21 12:00 Lyme Disease IgG Ab Negative (Negative) 01/06/21 12:00 Lyme Disease IgM Ab Negative (Negative) 01/06/21 12:00 COVID-19 Eval Order Covid19 at [facility] 01/06/21 12:44 SARS-CoV-2 (PCR) NEGATIVE (Negative) 01/06/21 12:44 Impressions Chest X-Ray 01/06/21 12:36 SINGLE VIEW CHEST CLINICAL HISTORY: Fever. FINDINGS: An AP, portable, upright chest radiograph is obtained. No prior studies are available for comparison at the time of dictation. The cardiomediastinal silhouette is unremarkable. There is elevation of the right hemidiaphragm. The lungs and pleural spaces are clear. No pneumothorax is seen. The bony thorax is grossly intact. IMPRESSION: No active disease in the chest. ACT 112: Negative or not required by law. Electronically signed by: Bharath Whitley M.D. 01/06/2021 1:17 PM Abdomen/Pelvis CT 01/06/21 14:33 CT abd pelvis IV con only CLINICAL HISTORY: abdominal pain, fever COMPARISON STUDY: Noncontrast CT of the abdomen and pelvis performed on January 06, 2021 at 13:24 hours. TECHNIQUE: A dose lowering technique was utilized adhering to the principles of ALARA. CT DOSE: 1322.68 mGy.cm FINDINGS: Lower chest: Interval worsening of atelectasis within right lower lobe.. Liver: The contrast-enhanced liver is normal in size, contour, and attenuation. There is no intrahepatic biliary ductal dilatation. The hepatic veins and portal veins are patent. Recently seen hepatic steatosis is not visualized on this enhanced exam. Gallbladder: Unremarkable. Spleen: Normal in size and attenuation. Pancreas: Contrast-enhanced pancreas shows normal appearance and show no evidence of hyper or hypoattenuating mass lesions or dilatation of the pancreatic duct. There is mild fat stranding surrounding pancreas and adjacent nondilated portion of the duodenum. Adrenal glands: Unremarkable. Kidneys: There is symmetric renal cortical enhancement. The kidneys are normal in size without hydronephrosis.Mild perinephric fat stranding is seen mostly on the right. Pelvic viscera: The bladder, and pelvic viscera are unremarkable. Bowel: Bowel loops are nondilated. Dilated appendix measure up to 1.1 cm in size with surrounding fat stranding and multiple prominent lymph nodes. No evidence of fluid collection within right lower quadrant. Peritoneum: There is no intraperitoneal free air or abdominal ascites. Redemonstration of peripancreatic fat stranding which also involve adjacent loop of bowel and extending to the right lower quadrant and associated with multiple prominent lymph nodes. There is 1.1 cm rounded soft tissue lesion within left upper quadrant concerning for metastatic process. Vasculature: The abdominal aorta is normal in course and caliber. Adenopathy: Innumerable retroperitoneal lymph nodes are seen measuring up to 1.1 cm in size, seen predominantly within mid abdominal region Skeletal structures: No destructive osseous lesions are seen. IMPRESSION: 1. No evidence of focal pancreatic lesion to suggest neoplastic process. Diffuse peripancreatic fat stranding which also extend to adjacent loops of bowel and to the right lower quadrant might represent acute pancreatitis or/and duodenitis. Presence of multiple prominent retroperitoneal and mesenteric lymph nodes is also concerning for neoplastic process. Appendix is dilated without gas within its lumen and no surrounding fluid collection to suggest abscess forma tion. Differential diagnosis include neoplasm or acute appendicitis. Nodule within left upper quadrant might represent metastatic lesion. 2. Interval worsening of atelectasis within the right lower lobe. ACT 112: Negative or not required by law. The above report was generated using voice recognition software. It may contain grammatical, syntax or spelling errors. Electronically signed by: Aracelis Au DO 01/06/2021 3:45 PM Code Status & VTE Plan VTE Prophylaxis Plan VTE Prophylaxis will be ordered: Yes PG Care Time/CCT Total # of Minutes Spent Total Time Spent with Patient: Total time spent is greater than 50% in coordination of care (as documented) at patient's floor/unit and/or counseling patient: Coding Level of Care Code 45294 Initial Inpt Care Lvl 3 Diagnoses Acute hyponatremia E87.1 Pancreatitis K85.90 Sepsis A41.9 Lymphadenopathy R59.1 Decreased urine output R34
[2021-01-06] MEDS ORDERED: PIPERACILL/TAZOBAC CONSULT ACTIVE PRN (19:37)
[2021-01-06] MEDS ORDERED: ONDANSETRON INJ 2 MG/ML 2 ML VIAL IV PRN (19:37)
[2021-01-06] MEDS ORDERED: PIPERACILLIN/TAZOBACTAM 4.5 GM in DEXTROSE 5% 100 ML IV ONE (20:00)
[2021-01-06] MEDS: LACTATED RINGER'S 1,000 ML IV SCH (21:04)
--- NOTE | 2021-01-06 23:31 | XRay Report ---
SINGLE VIEW CHEST CLINICAL HISTORY: Dyspnea. FINDINGS: An AP, portable, upright chest radiograph is compared to study performed earlier the same d ay 01/06/2021. The cardiomediastinal silhouette is unremarkable. There is elevation of the right brie diaphragm end mild bibasilar atelectasis. The lungs and pleural spaces are otherwise clear. No pneumo thorax is seen. The bony thorax is grossly intact. IMPRESSION: No active disease in the chest and no change from today's earlier examination. ACT 112: Negative or not required by law. Electronically signed by: Bharath Whitley M.D. 01/06/2021 11:30 PM
[2021-01-06] MEDS ORDERED: LEVALBUTEROL HCL 0.63 MG/3 ML NEB NEB STA (23:38)
[2021-01-07] MEDS: PIPERACILLIN/TAZOBACTAM 4.5 GM in DEXTROSE 5% 100 ML IV SCH ×2 (01:52→09:06)
[2021-01-07] MEDS: ACETAMINOPHEN 325 MG TAB PO PRN ×2 (02:06→17:45)
[2021-01-07] MEDS: LACTATED RINGER'S 1,000 ML IV SCH ×3 (05:38→21:45)
--- NOTE | 2021-01-07 05:53 | Communication Note ---
Date of Service: January 07, 2021 Called by bedside nursing given patient complaint of shortness of breath. Upon my presentation to bedside, patient up walking to the bathroom not on nasal cannula support at this point in time. States that he has been feeling short of breath for the past week or so. No specific chest pain, or discomfort. States that he feels like when he goes to sleep he finds it harder. Does not endorse changes with position (i.e. Standing or sitting versus lying supine). To longtime smoker, with decision to quit upon this hospitalization. On my exam patient had whole field diminished lung sounds. No wheeze, crackles, or rhonchi. Given tachycardia up on vital signs ordered Xopenex. Potential concern that given his smoking history patient could potentially have COPD. Chest x-ray taken at that time with questionable increasing congestion over right lower lung field. Later in the shift, patient endorses improvement following Xopenex treatment. W ill continue to have Xopenex available for as needed treatments of shortness of breath. Resident Activity Tracking Resident Involvement: Resident Care Provided Care Provided: Adult Hospital Medicine
[2021-01-07] MEDS: LEVALBUTEROL HCL 0.63 MG/3 ML NEB NEB SCH ×3 (06:57→20:56)
[2021-01-07 09:04] LABS: Hematocrit (blood only) 37.2 % (42-52); Hemoglobin 12.8 g/dL (14.0-18.0); Mean Corpuscular Hemoglobin 30.1 pg (25-34); Mean Corpuscular Hgb Conc 34.4 g/dL (32-36); Mean Corpuscular Volume 87.5 fL (80-100); Mean Platelet Volume 10.6 fL (7.4-10.4); Platelet Count 246 K/uL (130-400); RDW Coefficient of Variation 14.3 % (11.5-14.5); RDW Standard Deviation 46.1 fL (36.4-46.3); Red Blood Count 4.25 M/uL (4.7-6.1); White Blood Count 23.11 K/uL (4.8-10.8)
[2021-01-07] MEDS: NICOTINE 14 MG/24 HR PATCH TD SCH (09:07)
[2021-01-07 09:22] LABS: Albumin Level 2.7 gm/dl (3.4-5.0); BUN Creatinine Ratio 8.6 (10-20); Bilirubin Direct 1.2 mg/dl (0-0.2); Calcium 8.1 mg/dl (8.5-10.1); Creatinine Clr Calc Pharmacy 82.8 ml/min; Est GFR (African American) 71.1 ml/min; Est GFR (Non-African American) 61.3 ml/min; Potassium 3.6 mmol/L (3.5-5.1)
[2021-01-07 09:24] LABS: Basophils # (auto) 0.02 K/uL (0-0.2); Basophils % (auto) 0.1 %; Eosinophils # (auto) 0.02 K/uL (0-0.5); Eosinophils % (auto) 0.1 %; Immature Granulocytes # (auto) 0.19 K/uL (0.00-0.02); Immature Granulocytes % (auto) 0.8 %; Lymphocytes # (auto) 1.82 K/uL (1.2-3.4); Lymphocytes % (auto) 7.9 %; Monocytes # (auto) 0.58 K/uL (0.11-0.59); Monocytes % (auto) 2.5 %; Neutrophils # (auto) 20.48 K/uL (1.4-6.5); Neutrophils % (auto) 88.6 %; RBC Morphology Unremarkable
[2021-01-07 09:25] LABS: Bilirubin,Total 2.1 mg/dl (0.2-1); Total Protein 7.4 gm/dl (6.4-8.2)
[2021-01-07] MEDS ORDERED: SODIUM CHLORIDE 0.9% 1000ML 1,000 ML IV ONE (09:45)
[2021-01-07] MEDS ORDERED: MEROPENEM CONSULT ACITVE PRN (09:51)
--- NOTE | 2021-01-07 10:30 | Hospitalist Progress Note ---
Date of Service January 07, 2021 Assessment & Plan (1) Sepsis: Plan: Sepsis with acute organ dysfunctionacute renal failuresource not clear; pancreatic pathology not convincing but possible Blood pressure still low side; fortunately clinically does not look like a pe rson in shock or even septic Switch to meropenem-if any question of pancreatic source Carbapenems are the only ones that reliably penetrate pancreatic tissue; add Doxy; 1 more saline bolus; stat lactic acidinitially less than 2 Ongoing Ringer lactate Immediately does not need ICU transfer but would not keep a very high threshold (2) Pancreatitis: Plan: CT with peripancreatic stranding. Patient with mild elevation of lipase at 4.39. Agree with admission impression -do not strongly suspect the pancreatitis is the sole cause for symptoms. Calcium is normal -keep patient n.p.o. for bowel rest IV fluids with LR at 150 mL/h x 2 L (3) Acute hyponatremia: Plan: Mild and improvingfollow (4) Lymphadenopathy: Plan: With marked lymphadenopathy noted on CAT scan; given acuity intuitively would seem benign more likely but keep an open mind-comment about left upper quadrant nodule more concerning Might need biopsy at some point (5) Acute renal insufficiency: Plan: Volume and follow (6) Abnormal LFTs: Plan: Uncertain significance; probably part of acute sepsisfollow at present Plan: Continue volume; noted urinary abnormalitiescultures pending; has some urinary hesitancy/decreased urination but no clear UTI symptoms Noted elevated CKunclear significance; inclined to follow at present Added empiric PPI Admission and Anticipated Discharge Date Admission Date: January 06, 2021 Subjective Follow-up of febrile illness; young male with no significant past medical history returned from vacation and Saturday started developing fevers, abdominal pain ; general unwellness, joint pains; no known tick exposure; recent positive Covid but repeat twice negative; yesterday some nonspecific shortness of breath; diarrhea + Presented in sepsis At present feels hungry! Physical Exam Physical Exam: Constitutional and general: In spite of acute illness not in acute distress as such, looks biologic age Head and face: No puffiness, atraumatic Eyes: Minimal scleral icterus, extraocular movements normal Neck: Supple, no JVD Musculoskeletal: No acute joint swelling, no bony abnormalities Skin/dermatologic/integument: No rash, no purpura Hematologic and lymphatic: pallor mild, no petechia Gastrointestinal/abdomen: Soft, nonsurgical Neurologic: Cranial nerves intact, nonfocal Psychiatry: Awake, alert, pleasant, communicative Cardiovascular: Heart rhythm regular, no rub, no murmur, no gallop Respiratory: Chest movements equal, no use of accessory muscles, no adventitious sounds Extremities: No edema, no cyanosis Results & Data Results & Data ([facility]) Vital Signs (Past 12 Hours) Vital Signs Temp Pulse Pulse Resp BP BP Pulse Ox 01/07/21 10:00 90/62 L 01/07/21 09:00 114 H 01/07/21 08:00 37.1 C 112 H 20 80/52 L 99/64 L 95 01/07/21 07:00 115 H 18 97 01/07/21 04:05 37.1 C 01/07/21 02:26 38.1 C H 104 H 18 101/58 L 97 01/07/21 00:00 110 H 20 97 01/06/21 22:32 37.5 C 112 H 22 110/72 95 Laboratory Results Laboratory Results - last 24 hr 01/06/21 01/06/21 01/06/21 12:00 12:00 12:00 WBC 22.13 H RBC 4.64 L Hgb 14.0 Hct 40.2 L MCV 86.6 MCH 30.2 MCHC 34.8 RDW Std Deviation 44.2 RDW Coeff of Omar 14.0 Plt Count 240 MPV 11.0 H Immature Gran % (Auto) 1.1 Neut % (Auto) 87.8 Lymph % (Auto) 7.5 [place] % (Auto) 3.4 Eos % (Auto) 0.1 Baso % (Auto) 0.1 Neut # (Auto) 19.42 H Lymph # (Auto) 1.66 [place] # (Auto) 0.76 H Eos # (Auto) 0.02 Baso # (Auto) 0.02 Immature Gran # (Auto) 0.25 H Hypogranular Neuts 1+ Toxic Granulation 1+ Toxic Vacuolation 1+ RBC Morphology Sodium 128 L Potassium 3.5 Chloride 96 L Carbon Dioxide 23 Anion Gap 9.0 BUN 11 Creatinine 1.53 H Est Cr Clr Drug Dosing 75.1 Est GFR ( Amer) 62.7 Est GFR (Non-Af Amer) 54.1 BUN/Creatinine Ratio 6.9 L Glucose 120 H Osmolality Lactate Calcium 8.7 Magnesium Total Bilirubin 2.3 H Direct Bilirubin AST 59 H ALT 77 Alkaline Phosphatase 121 H Total Creatine Kinase Total Protein 8.0 Albumin 3.0 L Globulin 5.0 H Albumin/Globulin Ratio 0.6 L Lipase Procalcitonin Urine Color Urine Appearance Urine pH Ur Specific [place] Urine Protein Urine Glucose (UA) Urine Ketones Urine Blood Urine Nitrite Urine Bilirubin Urine Urobilinogen Ur Leukocyte Esterase Urine WBC (Auto) Urine RBC (Auto) U Hyaline Cast (Auto) U Epithel Cells (Auto) Urine Bacteria (Auto) Ur Renal Epithelial Cell Granular Casts WBC Casts Urine Yeast Urine Osmolality Ur Random Sodium Nasal Screen MRSA (PCR) Anaplasma Smear See Comment A. phagocytophilum DNA Pending Lyme Disease IgG Ab Lyme Disease IgM Ab COVID-19 Eval Order SARS-CoV-2 (PCR) 01/06/21 01/06/21 01/06/21 12:00 12:00 12:00 WBC RBC Hgb Hct MCV MCH MCHC RDW Std Deviation RDW Coeff of Omar Plt Count MPV Immature Gran % (Auto) Neut % (Auto) Lymph % (Auto) [place] % (Auto) Eos % (Auto) Baso % (Auto) Neut # (Auto) Lymph # (Auto) [place] # (Auto) Eos # (Auto) Baso # (Auto) Immature Gran # (Auto) Hypogranular Neuts Toxic Granulation Toxic Vacuolation RBC Morphology Sodium Potassium Chloride Carbon Dioxide Anion Gap BUN Creatinine Est Cr Clr Drug Dosing Est GFR ( Amer) Est GFR (Non-Af Amer) BUN/Creatinine Ratio Glucose Osmolality Lactate 1.3 Calcium Magnesium Total Bilirubin Direct Bilirubin AST ALT Alkaline Phosphatase Total Creatine Kinase 708 H Total Protein Albumin Globulin Albumin/Globulin Ratio Lipase Procalcitonin Urine Color Urine Appearance Urine pH Ur Specific [place] Urine Protein Urine Glucose (UA) Urine Ketones Urine Blood Urine Nitrite Urine Bilirubin Urine Urobilinogen Ur Leukocyte Esterase Urine WBC (Auto) Urine RBC (Auto) U Hyaline Cast (Auto) U Epithel Cells (Auto) Urine Bacteria (Auto) Ur Renal Epithelial Cell Granular Casts WBC Casts Urine Yeast Urine Osmolality Ur Random Sodium Nasal Screen MRSA (PCR) Anaplasma Smear A. phagocytophilum DNA Lyme Disease IgG Ab Negative Lyme Disease IgM Ab Negative COVID-19 Eval Order SARS-CoV-2 (PCR) 01/06/21 01/06/21 01/06/21 12:00 12:00 12:00 WBC RBC Hgb Hct MCV MCH MCHC RDW Std Deviation RDW Coeff of Omar Plt Count MPV Immature Gran % (Auto) Neut % (Auto) Lymph % (Auto) [place] % (Auto) Eos % (Auto) Baso % (Auto) Neut # (Auto) Lymph # (Auto) [place] # (Auto) Eos # (Auto) Baso # (Auto) Immature Gran # (Auto) Hypogranular Neuts Toxic Granulation Toxic Vacuolation RBC Morphology Sodium Potassium Chloride Carbon Dioxide Anion Gap BUN Creatinine Est Cr Clr Drug Dosing Est GFR ( Amer) Est GFR (Non-Af Amer) BUN/Creatinine Ratio Glucose Osmolality Lactate Calcium Magnesium 2.1 Total Bilirubin Direct Bilirubin AST ALT Alkaline Phosphatase Total Creatine Kinase Total Protein Albumin Globulin Albumin/Globulin Ratio Lipase 439 H Procalcitonin 6.54 H Urine Color Urine Appearance Urine pH Ur Specific [place] Urine Protein Urine Glucose (UA) Urine Ketones Urine Blood Urine Nitrite Urine Bilirubin Urine Urobilinogen Ur Leukocyte Esterase Urine WBC (Auto) Urine RBC (Auto) U Hyaline Cast (Auto) U Epithel Cells (Auto) Urine Bacteria (Auto) Ur Renal Epithelial Cell Granular Casts WBC Casts Urine Yeast Urine Osmolality Ur Random Sodium Nasal Screen MRSA (PCR) Anaplasma Smear A. phagocytophilum DNA Lyme Disease IgG Ab Lyme Disease IgM Ab COVID-19 Eval Order SARS-CoV-2 (PCR) 01/06/21 01/06/21 01/06/21 12:00 12:20 12:44 WBC RBC Hgb Hct MCV MCH MCHC RDW Std Deviation RDW Coeff of Omar Plt Count MPV Immature Gran % (Auto) Neut % (Auto) Lymph % (Auto) [place] % (Auto) Eos % (Auto) Baso % (Auto) Neut # (Auto) Lymph # (Auto) [place] # (Auto) Eos # (Auto) Baso # (Auto) Immature Gran # (Auto) Hypogranular Neuts Toxic Granulation Toxic Vacuolation RBC Morphology Sodium Potassium Chloride Carbon Dioxide Anion Gap BUN Creatinine Est Cr Clr Drug Dosing Est GFR ( Amer) Est GFR (Non-Af Amer) BUN/Creatinine Ratio Glucose Osmolality 266 L Lactate Calcium Magnesium Total Bilirubin Direct Bilirubin AST ALT Alkaline Phosphatase Total Creatine Kinase Total Protein Albumin Globulin Albumin/Globulin Ratio Lipase Procalcitonin Urine Color [place] Urine Appearance Cloudy A Urine pH 5.5 Ur Specific [place] 1.026 Urine Protein 3+ H Urine Glucose (UA) Trace H Urine Ketones Trace H Urine Blood 3+ H Urine Nitrite Positive A Urine Bilirubin 2+ H Urine Urobilinogen Negative Ur Leukocyte Esterase 1+ H Urine WBC (Auto) 10-30 H Urine RBC (Auto) 5-10 H U Hyaline Cast (Auto) >30 H U Epithel Cells (Auto) >30 H Urine Bacteria (Auto) Negative Ur Renal Epithelial Cell Not Reportable Granular Casts >30 H WBC Casts 1-5 H Urine Yeast Not Reportable Urine Osmolality Ur Random Sodium Nasal Screen MRSA (PCR) Anaplasma Smear A. phagocytophilum DNA Lyme Disease IgG Ab Lyme Disease IgM Ab COVID-19 Eval Order Covid19 at [facility] [place] SARS-CoV-2 (PCR) 01/06/21 01/06/21 01/06/21 12:44 23:20 23:20 WBC RBC Hgb Hct MCV MCH MCHC RDW Std Deviation RDW Coeff of Omar Plt Count MPV Immature Gran % (Auto) Neut % (Auto) Lymph % (Auto) [place] % (Auto) Eos % (Auto) Baso % (Auto) Neut # (Auto) Lymph # (Auto) [place] # (Auto) Eos # (Auto) Baso # (Auto) Immature Gran # (Auto) Hypogranular Neuts Toxic Granulation Toxic Vacuolation RBC Morphology Sodium Potassium Chloride Carbon Dioxide Anion Gap BUN Creatinine Est Cr Clr Drug Dosing Est GFR ( Amer) Est GFR (Non-Af Amer) BUN/Creatinine Ratio Glucose Osmolality Lactate Calcium Magnesium Total Bilirubin Direct Bilirubin AST ALT Alkaline Phosphatase Total Creatine Kinase Total Protein Albumin Globulin Albumin/Globulin Ratio Lipase Procalcitonin Urine Color Urine Appearance Urine pH Ur Specific [place] Urine Protein Urine Glucose (UA) Urine Ketones Urine Blood Urine Nitrite Urine Bilirubin Urine Urobilinogen Ur Leukocyte Esterase Urine WBC (Auto) Urine RBC (Auto) U Hyaline Cast (Auto) U Epithel Cells (Auto) Urine Bacteria (Auto) Ur Renal Epithelial Cell Granular Casts WBC Casts Urine Yeast Urine Osmolality 684 Ur Random Sodium 21 Nasal Screen MRSA (PCR) Anaplasma Smear A. phagocytophilum DNA Lyme Disease IgG Ab Lyme Disease IgM Ab COVID-19 Eval Order SARS-CoV-2 (PCR) NEGATIVE 01/07/21 01/07/21 01/07/21 02:00 08:44 08:44 WBC 23.11 H RBC 4.25 L Hgb 12.8 L Hct 37.2 L MCV 87.5 MCH 30.1 MCHC 34.4 RDW Std Deviation 46.1 RDW Coeff of Omar 14.3 Plt Count 246 MPV 10.6 H Immature Gran % (Auto) 0.8 Neut % (Auto) 88.6 Lymph % (Auto) 7.9 [place] % (Auto) 2.5 Eos % (Auto) 0.1 Baso % (Auto) 0.1 Neut # (Auto) 20.48 H Lymph # (Auto) 1.82 [place] # (Auto) 0.58 Eos # (Auto) 0.02 Baso # (Auto) 0.02 Immature Gran # (Auto) 0.19 H Hypogranular Neuts Toxic Granulation Toxic Vacuolation RBC Morphology Unremarkable Sodium 132 L Potassium 3.6 Chloride 99 Carbon Dioxide 24 Anion Gap 9.0 BUN 12 Creatinine 1.38 Est Cr Clr Drug Dosing 82.8 Est GFR ( Amer) 71.1 Est GFR (Non-Af Amer) 61.3 BUN/Creatinine Ratio 8.6 L Glucose 99 Osmolality Lactate Calcium 8.1 L Magnesium Total Bilirubin 2.1 H Direct Bilirubin 1.2 H AST 47 H ALT 58 Alkaline Phosphatase 100 Total Creatine Kinase 827 H Total Protein 7.4 Albumin 2.7 L Globulin Albumin/Globulin Ratio Lipase Procalcitonin Urine Color Urine Appearance Urine pH Ur Specific [place] Urine Protein Urine Glucose (UA) Urine Ketones Urine Blood Urine Nitrite Urine Bilirubin Urine Urobilinogen Ur Leukocyte Esterase Urine WBC (Auto) Urine RBC (Auto) U Hyaline Cast (Auto) U Epithel Cells (Auto) Urine Bacteria (Auto) Ur Renal Epithelial Cell Granular Casts WBC Casts Urine Yeast Urine Osmolality Ur Random Sodium Nasal Screen MRSA (PCR) Negative Anaplasma Smear A. phagocytophilum DNA Lyme Disease IgG Ab Lyme Disease IgM Ab COVID-19 Eval Order SARS-CoV-2 (PCR) 01/07/21 10:00 WBC RBC Hgb Hct MCV MCH MCHC RDW Std Deviation RDW Coeff of Omar Plt Count MPV Immature Gran % (Auto) Neut % (Auto) Lymph % (Auto) [place] % (Auto) Eos % (Auto) Baso % (Auto) Neut # (Auto) Lymph # (Auto) [place] # (Auto) Eos # (Auto) Baso # (Auto) Immature Gran # (Auto) Hypogranular Neuts Toxic Granulation Toxic Vacuolation RBC Morphology Sodium Potassium Chloride Carbon Dioxide Anion Gap BUN Creatinine Est Cr Clr Drug Dosing Est GFR ( Amer) Est GFR (Non-Af Amer) BUN/Creatinine Ratio Glucose Osmolality Lactate Pending Calcium Magnesium Total Bilirubin Direct Bilirubin AST ALT Alkaline Phosphatase Total Creatine Kinase Total Protein Albumin Globulin Albumin/Globulin Ratio Lipase Procalcitonin Urine Color Urine Appearance Urine pH Ur Specific [place] Urine Protein Urine Glucose (UA) Urine Ketones Urine Blood Urine Nitrite Urine Bilirubin Urine Urobilinogen Ur Leukocyte Esterase Urine WBC (Auto) Urine RBC (Auto) U Hyaline Cast (Auto) U Epithel Cells (Auto) Urine Bacteria (Auto) Ur Renal Epithelial Cell Granular Casts WBC Casts Urine Yeast Urine Osmolality Ur Random Sodium Nasal Screen MRSA (PCR) Anaplasma Smear A. phagocytophilum DNA Lyme Disease IgG Ab Lyme Disease IgM Ab COVID-19 Eval Order SARS-CoV-2 (PCR) Diagnostic Findings Abdomen/Pelvis CT 01/06/21 12:23 CT SCAN OF THE ABDOMEN AND PELVIS WITHOUT CONTRAST CLINICAL HISTORY: abdominal/back pain, fever COMPARISON STUDY: No previous studies for comparison. TECHNIQUE: CT scan of the abdomen and pelvis was performed from the lung bases to the proximal femurs. Images are reviewed in the axial, sagittal, and coronal planes. IV contrast was not administered for this examination. A dose lowering technique was utilized adhering to the principles of ALARA. CT DOSE: 1325.31 mGy.cm FINDINGS: Lower chest: Minimal atelectasis is seen at dependent portion of the right lower lobe. Liver: The unenhanced liver is enlarged measuring 20.9 cm in anterior-posterior dimension and shows diffuse decrease in attenuation of its parenchyma. No evidence of focal lesions or intrahepatic biliary dilatation. Gallbladder: Unremarkable. Spleen: Normal in size and attenuation. Pancreas: There is loss of normal pancreatic contour at the region of pancreatic body and uncinate process with diffuse surrounding fat stranding which also extends to the lower abdomen and pelvic region and associated with multiple prominent lymph nodes. Adrenal glands: Unremarkable. Kidneys: The unenhanced kidneys are normal in size. No definite hydronephrosis is seen. No renal calculi are identified. Asymmetrical fat stranding is seen surrounding right kidney. Bowel: Loops of bowel are nondilated. Possibly small duodenal diverticulum is demonstrated. Evaluation is suboptimal due to lack of IV contrast. Appendix is slightly dilated measuring up to 10 mm in diameter. No definite periappendiceal abscess/fluid collection is seen however there is diffuse fat stranding within the right lower quadrant appear to be continuous with peripancreatic fat stranding. Peritoneum: There is no intraperitoneal free air or abdominal ascites. Vasculature: The abdominal aorta is normal in course and caliber. Adenopathy: Innumerable retroperitoneal lymph nodes measuring up to 1.3 cm in short axis. Pelvic viscera: Urinary bladder is decompressed which limits evaluation. Prostate gland is not enlarged. Skeletal structures: No definite aggressive osseous lesions are seen. IMPRESSION: 1. Mesenteric fat stranding involving pancreatic head and uncinate process also extend into the right lower quadrant and also associated with dilated appendix could be due to inflammatory processes such as pancreatitis or developing appendicitis however due to prominent lymphadenopathy findings are concerning for neoplastic process which might involve pancreas, appendix or duodenum. Evaluation is suboptimal due to lack of IV contrast. Further evaluation with contrast CT of the abdomen and pelvis is recommended. Findings will be sent to emergency Department. 2. Hepatomegaly. Hepatic steatosis. 3. The rest of findings as above. ACT 112: Negative or not required by law. The above report was generated using voice recognition software. It may contain grammatical, syntax or spelling errors. Electronically signed by: Aracelis Au DO 01/06/2021 2:19 PM Chest X-Ray 01/06/21 12:36 SINGLE VIEW CHEST CLINICAL HISTORY: Fever. FINDINGS: An AP, portable, upright chest radiograph is obtained. No prior studies are available for comparison at the time of dictation. The cardiomediastinal silhouette is unremarkable. There is elevation of the right hemidiaphragm. The lungs and pleural spaces are clear. No pneumothorax is seen. The bony thorax is grossly intact. IMPRESSION: No active disease in the chest. ACT 112: Negative or not required by law. Electronically signed by: Bharath Whitley M.D. 01/06/2021 1:17 PM Abdomen/Pelvis CT 01/06/21 14:33 CT abd pelvis IV con only CLINICAL HISTORY: abdominal pain, fever COMPARISON STUDY: Noncontrast CT of the abdomen and pelvis performed on January 06, 2021 at 13:24 hours. TECHNIQUE: A dose lowering technique was utilized adhering to the principles of ALARA. CT DOSE: 1322.68 mGy.cm FINDINGS: Lower chest: Interval worsening of atelectasis within right lower lobe.. Liver: The contrast-enhanced liver is normal in size, contour, and attenuation. There is no intrahepatic biliary ductal dilatation. The hepatic veins and portal veins are patent. Recently seen hepatic steatosis is not visualized on this enhanced exam. Gallbladder: Unremarkable. Spleen: Normal in size and attenuation. Pancreas: Contrast-enhanced pancreas shows normal appearance and show no evidence of hyper or hypoattenuating mass lesions or dilatation of the pancreatic duct. There is mild fat stranding surrounding pancreas and adjacent nondilated portion of the duodenum. Adrenal glands: Unremarkable. Kidneys: There is symmetric renal cortical enhancement. The kidneys are normal in size without hydronephrosis.Mild perinephric fat stranding is seen mostly on the right. Pelvic viscera: The bladder, and pelvic viscera are unremarkable. Bowel: Bowel loops are nondilated. Dilated appendix measure up to 1.1 cm in size with surrounding fat stranding and multiple prominent lymph nodes. No evidence of fluid collection within right lower quadrant. Peritoneum: There is no intraperitoneal free air or abdominal ascites. Redemonstration of peripancreatic fat stranding which also involve adjacent loop of bowel and extending to the right lower quadrant and associated with multiple prominent lymph nodes. There is 1.1 cm rounded soft tissue lesion within left upper quadrant concerning for metastatic process. Vasculature: The abdominal aorta is normal in course and caliber. Adenopathy: Innumerable retroperitoneal lymph nodes are seen measuring up to 1.1 cm in size, seen predominantly within mid abdominal region Skeletal structures: No destructive osseous lesions are seen. IMPRESSION: 1. No evidence of focal pancreatic lesion to suggest neoplastic process. Diffuse peripancreatic fat stranding which also extend to adjacent loops of bowel and to the right lower quadrant might represent acute pancreatitis or/and duodenitis. Presence of multiple prominent retroperitoneal and mesenteric lymph nodes is also concerning for neoplastic process. Appendix is dilated without gas within its lumen and no surrounding fluid collection to suggest abscess formation. Differential diagnosis include neoplasm or acute appendicitis. Nodule within left upper quadrant might represent metastatic lesion. 2. Interval worsening of atelectasis within the right lower lobe. ACT 112: Negative or not required by law. The above report was generated using voice recognition software. It may contain grammatical, syntax or spelling errors. Electronically signed by: Aracelis Au DO 01/06/2021 3:45 PM Chest X-Ray 01/06/21 23:09 SINGLE VIEW CHEST CLINICAL HISTORY: Dyspnea. FINDINGS: An AP, portable, upright chest radiograph is compared to study performed earlier the same day 01/06/2021. The cardiomediastinal silhouette is unremarkable. There is elevation of the right hemidiaphragm end mild bibasilar atelectasis. The lungs and pleural spaces are otherwise clear. No pneumothorax is seen. The bony thorax is grossly intact. IMPRESSION: No active disease in the chest and no change from today's earlier examination. ACT 112: Negative or not required by law. Electronically signed by: Bharath Whitley M.D. 01/06/2021 11:30 PM PG Care Time/CCT Total # of Minutes Spent Total Time Spent with Patient: Total time spent is greater than 50% in coordination of care (as documented) at patient's floor/unit and/or counseling patient: Coding Level of Care Code 30879 Subseq Hosp Care Lvl 3 Diagnoses Sepsis A41.9 Pancreatitis K85.90 Acute hyponatremia E87.1 Lymphadenopathy R59.1 Acute renal insufficiency N28.9 Abnormal LFTs R94.5
[2021-01-07] MEDS ORDERED: Nursing to Pharmacy Communication SCH (11:00)
[2021-01-07] MEDS: MEROPENEM 500 MG in SYRINGE 0 ML IV SCH ×3 (11:25→23:53)
[2021-01-07] MEDS: PANTOprazole 40 MG in SYRINGE 0 ML IV SCH (11:25)
[2021-01-07] MEDS: DOXYCYCLINE HYCLATE 100 MG in DEXTROSE 5% 100 ML IV SCH ×2 (11:25→23:53)
[2021-01-07] MEDS: ENOXAPARIN INJ 40 MG/0.4 ML SYR SQ SCH (12:47)
--- NOTE | 2021-01-07 12:52 | Surgery Consultation ---
Date of Consultation January 07, 2021 Assessment & Plan (1) Pancreatitis: No obvious source of sepsis, although feels better today Possible pancreatitis Less likely appendicitis; no fecalith, would treat dilated appendix with abx Consider GI consult for possible EGD and will need eventual colonoscopy with finding of dilated appendix and possible infectious colitis Agree with meropenem and doxy Keep NPO; if clinically improves then advance diet (2) Lymphadenopathy: Will need biopsy if repeat scan does not show improved History of Present Illness Attending Physician: Khushboo Shepard MD History of Present Illness Larry Saleh is a 45-year-old male with no significant past medical or surgical history presenting with 5 days of fever as well as body aches, crampy abdominal pain mainly in lower quadrants which have improved. He has significant diarrhea, which is loose and nonbloody. He also has low back pain with his crampy, lower abdominal pain. Patient had recent COVID 6 weeks ago. He tested negative in repeat test here. He denies chest pain, palpitations, shortness of breath, nausea, vomiting, rash. Ct scan shows dilated appendix without fecalith, multiple nodes and inflammatory stranding near his pancreas, and a 1cm mass in his LUQ. Allergies Allergy/AdvReac Type Severity Reaction Status Date / Time shellfish derived Allergy Severe Swelling Unverified 01/06/21 13:41 including Face Egg Derived Allergy Intermediate Abdominal Unverified 01/06/21 13:41 Pain and Constipation Home Medications Medication Instructions Recorded Confirmed Type acetaminophen 500 mg tablet 500 mg PO Q6H PRN 01/06/21 01/06/21 History (Tylenol Extra Strength) esomeprazole magnesium 20 mg 20 mg PO DAILY 01/06/21 01/06/21 History capsule,delayed release (Nexium) Patient History Medical History No significant past medical history Surgical History No significant past surgical history Social History Smoking Status: Current every day smoker Tobacco Type: Cigarettes Hx Alcohol Use: No Hx Substance Use: No Preferred Language: Guinean Communication Ability: Effective 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 Beliefs That Will Affect Care: None Current Living Situation: Spouse Feels Safe at Home: Yes Safety Concerns: Feels Safe At This Time Review of Systems Constitutional: + fever, + chills, + body aches, + fatigue, + weakness and + anorexia; no weight loss Eyes: no problem reported Ear, Nose, Mouth, Throat: no problem reported Respiratory: no cough and no dyspnea Cardiovascular: no chest pain Gastrointestinal: + abdominal pain, + cramping, + change in bowel habits and + diarrhea/loose stools; no nausea and no vomiting Genitourinary: no dysuria Musculoskeletal: + back pain Integumentary: no rash and no lesions Neurologic: no localized weakness and no generalized weakness Psychiatric: no behavioral changes Hematologic / Lymphatic: no easy bleeding and no easy bruising Physical Exam Constitutional: well developed and well nourished; no acute distress Eyes: PERRL, conjunctivae normal, anicteric sclerae ENMT: external ear and nose normal, oropharynx normal Neck: trachea midline Respiratory: normal respiratory effort, lungs clear to auscultation Cardiovascular: RRR, no murmur, no edema Gastrointestinal (Abdomen): Inspection/Auscultation: abdomen normal to inspection and normal bowel sounds; abdomen not distended, no visible herniation, no abdominal surgical scar and Rangel-Magallon sign absent Percussion/Palpation: abdomen soft; abdomen nontender, no guarding, abdomen not rigid, no hernia and no ascites Musculoskeletal: Head/Neck/Chest: normocephalic and head atraumatic Skin: no rashes, warm and dry Psychiatric: Orientation: alert and oriented x 3 Lymphatic: no cervical or axillary lymphadenopathy Results & Data ([facility]) Vital Signs (Past 12 Hours) Vital Signs Temp Pulse Pulse Resp BP BP Pulse Ox 01/07/21 11:59 37.0 C 122 H 20 110/65 93 01/07/21 10:00 90/62 L 01/07/21 09:00 114 H 01/07/21 08:00 37.1 C 112 H 20 80/52 L 99/64 L 95 01/07/21 07:00 115 H 18 97 01/07/21 04:05 37.1 C 01/07/21 02:26 38.1 C H 104 H 18 101/[address] L [address] abd pelvis IV con only CLINICAL HISTORY: abdominal pain, fever COMPARISON STUDY: Noncontrast CT of the abdomen and pelvis performed on January 06, 2021 at 13:24 hours. TECHNIQUE: A dose lowering technique was utilized adhering to the principles of ALARA. CT DOSE: 1322.68 mGy.cm FINDINGS: Lower chest: Interval worsening of atelectasis within right lower lobe.. Liver: The contrast-enhanced liver is normal in size, contour, and attenuation. There is no intrahepatic biliary ductal dilatation. The hepatic veins and portal veins are patent. Recently seen hepatic steatosis is not visualized on this enhanced exam. Gallbladder: Unremarkable. Spleen: Normal in size and attenuation. Pancreas: Contrast-enhanced pancreas shows normal appearance and show no evidence of hyper or hypoattenuating mass lesions or dilatation of the pancreatic duct. There is mild fat stranding surrounding pancreas and adjacent n ondilated portion of the duodenum. Adrenal glands: Unremarkable. Kidneys: There is symmetric renal cortical enhancement. The kidneys are normal in size without hydronephrosis.Mild perinephric fat stranding is seen mostly on the right. Pelvic viscera: The bladder, and pelvic viscera are unremarkable. Bowel: Bowel loops are nondilated. Dilated appendix measure up to 1.1 cm in size with surrounding fat stranding and multiple prominent lymph nodes. No evidence of fluid collection within right lower quadrant. Peritoneum: There is no intraperitoneal free air or abdominal ascites. Redemonstration of peripancreatic fat stranding which also involve adjacent loop of bowel and extending to the right lower quadrant and associated with multiple prominent lymph nodes. There is 1.1 cm rounded soft tissue lesion within left upper quadrant concerning for metastatic process. Vasculature: The abdominal aorta is normal in course and caliber. Adenopathy: Innumerable retroperitoneal lymph nodes are seen measuring up to 1.1 cm in size, seen predominantly within mid abdominal region Skeletal structures: No destructive osseous lesions are seen. IMPRESSION: 1. No evidence of focal pancreatic lesion to suggest neoplastic process. Diffuse peripancreatic fat stranding which also extend to adjacent loops of bowel and to the right lower quadrant might represent acute pancreatitis or/and duodenitis. Presence of multiple prominent retroperitoneal and mesenteric lymph nodes is also concerning for neoplastic process. Appendix is dilated without gas within its lumen and no surrounding fluid collection to suggest abscess formation. Differential diagnosis include neoplasm or acute appendicitis. Nodule within left upper quadrant might represent metastatic lesion. 2. Interval worsening of atelectasis within the right lower lobe.
[2021-01-07] MEDS ORDERED: MEROPENEM 1,000 MG in SYRINGE 0 ML IV SCH (14:00)
--- NOTE | 2021-01-07 19:00 | CT Scan Report ---
CT OF THE CHEST WITHOUT IV CONTRAST CLINICAL HISTORY: severe sepsis COMPARISON STUDY: Chest radiograph January 06, 2021 at 10:[address] DOSE: 801.05 mGy.cm TECHNIQUE: Axial images of the chest were obtained without IV contrast. Images were reviewed in the axial, sagittal, and coronal planes. IV contrast was not administered for this examination. Automat ed exposure control was utilized for the study. A dose lowering technique was utilized adhering to t he principles of ALARA. FINDINGS: No enlarged axillary, mediastinal or hilar lymph nodes are present. The size of the heart is within normal limits. There is no significant pericardial effusion. There is mild elevation of the right hemidiaphragm. Subpleural right lower lobe opacity favors atelectasis. There are mild groundgl ass opacities within the left upper lobe. Central airways are patent. No acute fracture or suspicious lesion is identified within visualized portions of the bony thorax. There is mild paraseptal emphyse ma. IMPRESSION: 1. Mild ground glass opacities within the left upper lobe which favor an infectious process. 2. Subpleural right lower lobe opacities suggestive of atelectasis. ACT 112: Negative or not required by law. Electronically signed by: Donn Walter M.D. 01/07/2021 6:59 PM
[2021-01-08] MEDS: LEVALBUTEROL HCL 0.63 MG/3 ML NEB NEB SCH ×4 (00:05→19:06)
[2021-01-08] MEDS: LACTATED RINGER'S 1,000 ML IV SCH (05:02)
[2021-01-08] MEDS: MEROPENEM 500 MG in SYRINGE 0 ML IV SCH ×3 (05:09→17:57)
[2021-01-08] MEDS ORDERED: ALBUT/IPRATROP 3MG/0.5MG NEB 3 ML VIAL NEB STA (05:12)
[2021-01-08 07:44] LABS: Basophils # (auto) 0.02 K/uL (0-0.2); Basophils % (auto) 0.1 %; Eosinophils # (auto) 0.08 K/uL (0-0.5); Eosinophils % (auto) 0.4 %; Hemoglobin 11.7 g/dL (14.0-18.0); Immature Granulocytes # (auto) 0.26 K/uL (0.00-0.02); Immature Granulocytes % (auto) 1.3 %; Lymphocytes # (auto) 1.81 K/uL (1.2-3.4); Lymphocytes % (auto) 9.1 %; Mean Corpuscular Hemoglobin 29.7 pg (25-34); Mean Corpuscular Hgb Conc 34.4 g/dL (32-36); Mean Corpuscular Volume 86.3 fL (80-100); Mean Platelet Volume 10.2 fL (7.4-10.4); Monocytes # (auto) 0.39 K/uL (0.11-0.59); Neutrophils # (auto) 17.27 K/uL (1.4-6.5); Neutrophils % (auto) 87.1 %; Platelet Count 267 K/uL (130-400); RDW Coefficient of Variation 14.2 % (11.5-14.5); RDW Standard Deviation 44.6 fL (36.4-46.3); Red Blood Count 3.94 M/uL (4.7-6.1); White Blood Count 19.83 K/uL (4.8-10.8)
--- NOTE | 2021-01-08 07:51 | Hospitalist Progress Note ---
Date of Service January 08, 2021 Assessment & Plan (1) Sepsis: Plan: Sepsis with acute organ dysfunctionacute renal failuresource still not clear; rising lipase raises the question of primary pancreatic pathology No more fever spikes is positive; cultures negative to datelikely not bacteremic illness; no change in antibiotics at presentnoted improving leukocytosis Hypotension was clearly volume responsive (2) Pancreatitis: Plan: CT with peripancreatic stranding; given rising lipase acute pancreatitis seems high on the differential but high spikes suggest superimposed bacterial infection GI input will start clear liquids-do not anticipate any invasive procedure anytime soon- he really wanted to eat; clinical assessment and tolerance more pertinent than lipase level (3) Acute hyponatremia: Plan: Mild and improvingfollow (4) Lymphadenopathy: Plan: With marked lymphadenopathy noted on CAT scan; given acuity intuitively would seem benign more likely but keep an open mind-comment about left upper quadrant nodule more concerning Might need biopsy at some point (5) Acute renal insufficiency: Plan: Improvedhypervolemic; stop IV fluid (6) Abnormal LFTs: Plan: Probably related to pancreatitis (7) Acute respiratory failure with hypoxia: Plan: hypervolemicDC IV fluids, BNP supports Somewhat unusual with normal kidney function and if normal cardiac function -1 dose Lasix, preemptive potassium 2D echo May need Lasix to be repeated Plan: Replace Phos Admission and Anticipated Discharge Date Admission Date: January 06, 2021 Subjective Follow-up of febrile illness, sepsis Short of breath overnight No other issues as such; denies abdominal pain; no more fever spikes; has remained hemodynamically stable Physical Exam Physical Exam: Constitutional and general: mild distress, looks biologic age Head and face: Mild puffiness, atraumatic Eyes: Minimal scleral icterus, extraocular movements normal Neck: Supple, no JVD Musculoskeletal: No acute joint swelling, no bony abnormalities Skin/dermatologic/integument: No rash, no purpura Hematologic and lymphatic: pallor mild, no petechia Gastrointestinal/abdomen: Soft, nonsurgical Neurologic: Cranial nerves intact, nonfocal Psychiatry: Awake, alert, pleasant, communicative Cardiovascular: Heart rhythm regular, no rub, no murmur, no gallop Respiratory: Chest movements equal, no use of accessory muscles, no adventitious sounds Extremities: edema +, no cyanosis Results & Data Results & Data ([facility]) Vital Signs (Past 12 Hours) Vital Signs Temp Pulse Pulse Resp BP Pulse Ox 08/22/21 05:32 113 H 16 98 01/08/21 05:06 96 01/08/21 03:52 37.2 C 112 H 22 103/72 97 01/08/21 00:08 108 H 18 96 01/07/21 22:50 37.2 C 113 H 22 106/72 97 01/07/21 22:32 113 H 01/07/21 20:01 37.0 C 117 H 22 100/74 99 PG Care Time/CCT Total # of Minutes Spent Total Time Spent with Patient: Total time spent is greater than 50% in coordination of care (as documented) at patient's floor/unit and/or counseling patient: Coding Level of Care Code 77634 Subseq Hosp Care Lvl 3 Diagnoses Sepsis A41.9 Pancreatitis K85.90 Acute hyponatremia E87.1 Lymphadenopathy R59.1 Acute renal insufficiency N28.9 Abnormal LFTs R94.5 Acute respiratory failure with hypoxia J96.01
[2021-01-08] MEDS ORDERED: FUROSEMIDE 40 MG in SYRINGE 0 ML IV ONE (08:00)
[2021-01-08 08:03] LABS: Albumin Level 2.4 gm/dl (3.4-5.0); Calcium 8.8 mg/dl (8.5-10.1); Creatinine Clr Calc Pharmacy 106.8 ml/min; Est GFR (African American) 96.7 ml/min; Est GFR (Non-African American) 83.4 ml/min; Magnesium 2.2 mg/dl (1.8-2.4); Potassium 3.6 mmol/L (3.5-5.1)
[2021-01-08 08:07] LABS: Albumin Globulin Ratio 0.5 (0.9-2); Bilirubin,Total 1.8 mg/dl (0.2-1); Globulin 4.6 gm/dl (2.5-4.0); Phosphorus 2.3 mg/dl (2.5-4.9)
[2021-01-08] MEDS: NICOTINE 14 MG/24 HR PATCH TD SCH (08:21)
[2021-01-08] MEDS: ACETAMINOPHEN 325 MG TAB PO PRN ×2 (08:21→22:10)
[2021-01-08] MEDS: ENOXAPARIN INJ 40 MG/0.4 ML SYR SQ SCH (08:22)
[2021-01-08] MEDS ORDERED: POTASSIUM CHLORIDE 20 MEQ/15 ML UDC PO STA (09:26)
--- NOTE | 2021-01-08 10:23 | Surgery Progress Note ---
Date of Service January 08, 2021 Assessment & Plan (1) Acute respiratory failure with hypoxia: Plan: no abdominal issues will need workup of lymph nodes and LUQ mass per medical team dilated appendix not appendicitis CT shows likely source of sepsis and possibly lymphadenopathy con't abx diet can be started and advanced Admission and Anticipated Discharge Date Admission Date: January 06, 2021 Subjective main complaint is SOB didn't sleep well no abdominal pain Review of Systems Constitutional: + fever, + chills and + body aches Respiratory: + dyspnea and + dyspnea on exertion Cardiovascular: + chest pain and + dyspnea Gastrointestinal: no abdominal pain, no nausea and no vomiting Genitourinary: no dysuria Neurologic: + generalized weakness; no localized weakness Hematologic / Lymphatic: no easy bleeding and no easy bruising Physical Exam Constitutional: well developed and well nourished; no acute distress Eyes: PERRL, conjunctivae normal, anicteric sclerae ENMT: external ear and nose normal, oropharynx normal Neck: trachea midline Respiratory: no respiratory distress, no labored breathing and does not use accessory muscles Auscultation: lungs clear to auscultation bilaterally and + diminished lung sounds Cardiovascular: RRR, no murmur, no edema Gastrointestinal (Abdomen): Inspection/Auscultation: abdomen normal to inspection and normal bowel sounds; abdomen not distended Percussion/Palpation: abdomen soft; abdomen nontender, no guarding, abdomen not rigid and no hernia Musculoskeletal: Head/Neck/Chest: normocephalic and head atraumatic Skin: no rashes, warm and dry Results & Data ([facility]) Vital Signs (Past 12 Hours) Vital Signs Temp Pulse Pulse Resp BP BP Pulse Ox 01/08/21 08:00 37.8 C H 110 H 18 111/69 93 01/08/21 07:48 93 H 20 98 01/08/21 05:32 113 H 16 98 01/08/21 05:06 96 01/08/21 03:52 37.2 C 112 H 22 103/72 97 01/08/21 00:08 108 H 18 96 01/07/21 22:50 37.2 C 113 H 22 106/72 97 01/07/21 22:[address] OF THE CHEST WITHOUT IV CONTRAST CLINICAL HISTORY: severe sepsis COMPARISON STUDY: Chest radiograph January 06, 2021 at 10:[address] DOSE: 801.05 mGy.cm TECHNIQUE: Axial images of the chest were obtained without IV contrast. Images were reviewed in the axial, sagittal, and coronal planes. IV contrast was not administered for this examination. Automated exposure control was utilized for the study. A dose lowering technique was utilized adhering to the principles of ALARA. FINDINGS: No enlarged axillary, mediastinal or hilar lymph nodes are present. The size of the heart is within normal limits. There is no significant pericardial effusion. There is mild elevation of the right hemidiaphragm. Subpleural right lower lobe opacity favors atelectasis. There are mild groundglass opacities within the left upper lobe. Central airways are patent. No acute fracture or suspicious lesion is identified within visualized portions of the bony thorax. There is mild paraseptal emphysema. IMPRESSION: 1. Mild ground glass opacities within the left upper lobe which favor an infectious process. 2. Subpleural right lower lobe opacities suggestive of atelectasis.
[2021-01-08] MEDS: PANTOprazole 40 MG in SYRINGE 0 ML IV SCH (11:58)
[2021-01-08] MEDS: DOXYCYCLINE HYCLATE 100 MG in DEXTROSE 5% 100 ML IV SCH (11:59)
[2021-01-08] MEDS: POT PHOSPHATE MONOBASIC W/ SOD TAB PO SCH ×3 (12:00→22:10)
--- NOTE | 2021-01-08 12:25 | XCELERA ---
[id number]
--- NOTE | 2021-01-08 13:26 | Gastrointestinal Consultation ---
Date of Consultation January 08, 2021 Assessment & Plan (1) Pancreatitis: (2) Sepsis: pancreatitis of unclear etiology, denies alcohol abuse, no evidence of gallstones. His findings on CT are concerning nonetheless but he is improving and pain is resolving Recs: --continue abx for unknown sepsis --advance diet to low residue diet starting at dinner tonight --would benefit from an EUS to further evaluate his pancreatic findings, as an outpatient. He can follow up with Dr. Garcia of [facility] for this. --supportive care, IVFs Thank you for allowing me to participate in the care of this patient History of Present Illness Attending Physician: Khushboo Shepard MD History of Present Illness 45-year-old male with no significant past medical or surgical history presenting with 5 days of fever and abdominal pains. His fever was as high as 104, also with some diarrhea and abdominal pains. lipase on admission was over 3000. CT shows pancreatic stranding, as well as adenopathy. He has been treated with abx for sepsis of unknown origin this hospitalization. Pain has improved with IVFs and abx. appendicitis was thought to be unlikely after surgical evaluation. labs reviewed. Allergies Allergy/AdvReac Type Severity Reaction Status Date / Time shellfish derived Allergy Severe Swelling Unverified 01/06/21 13:41 including Face Egg Derived Allergy Intermediate Abdominal Unverified 01/06/21 13:41 Pain and Constipation Home Medications Medication Instructions Recorded Confirmed Type acetaminophen 500 mg tablet 500 mg PO Q6H PRN 01/06/21 01/06/21 History (Tylenol Extra Strength) esomeprazole magnesium 20 mg 20 mg PO DAILY 01/06/21 01/06/21 History capsule,delayed release (Nexium) Patient History Medical History No significant past medical history Surgical History No significant past surgical history Social History Smoking Status: Current every day smoker Tobacco Type: Cigarettes Hx Alcohol Use: No Hx Substance Use: No Preferred Language: Spanish Communication Ability: Effective Textiles Printer Required: No Beliefs That Will Affect Care: None Current Living Situation: Spouse Feels Safe at Home: Yes Safety Concerns: Feels Safe At This Time Assistive Devices: Nebulizer Review of Systems Constitutional: no fever, no chills and no weight loss Eyes: as per Subjective / HPI Ear, Nose, Mouth, Throat: as per Subjective / HPI Respiratory: no dyspnea and no dyspnea on exertion Cardiovascular: no chest pain and no palpitations Gastrointestinal: as per Subjective / HPI Musculoskeletal: no joint pain and no swelling Integumentary: no rash and no lesions Neurologic: no numbness and no paresthesia Psychiatric: no depression and no anxiety Endocrine: no fatigue Hematologic / Lymphatic: no easy bleeding and no easy bruising Physical Exam Constitutional: WD/WN, vitals as above Eyes: EOM intact bilaterally Neck: normal visual inspection Respiratory: normal respiratory effort, lungs clear to auscultation Cardiovascular: RRR, no murmur, no edema Gastrointestinal (Abdomen): Inspection/Auscultation: abdomen normal to inspection; abdomen not distended Percussion/Palpation: abdomen soft; abdomen nontender and no hepatosplenomegaly Musculoskeletal: Extremities: no cyanosis Gait: normal gait Skin: no rashes, warm and dry Neurologic: moves all extremities Psychiatric: A+Ox3, euthymic affect Results & Data ([facility]) Vital Signs (Past 12 Hours) Vital Signs Temp Pulse Resp BP BP Pulse Ox 01/08/21 11:00 36.7 C 97 H 20 114/76 91 01/08/21 08:00 37.8 C H 110 H 18 111/69 93 01/08/21 07:48 93 H 20 98 01/08/21 05:32 113 H 16 98 01/08/21 05:06 96 01/08/21 03:52 37.2 C 112 H 22 103/72 97 PG Care Time/CCT Total # of Minutes Spent Total Time Spent with Patient: Total time spent is greater than 50% in coordination of care (as documented) at patient's floor/unit and/or counseling patient: Coding Level of Care Code 30220 Inpt Consult Level 4 Diagnoses Pancreatitis K85.90 Sepsis A41.9
[2021-01-09] MEDS: LEVALBUTEROL HCL 0.63 MG/3 ML NEB NEB SCH ×3 (00:09→12:59)
[2021-01-09] MEDS: DOXYCYCLINE HYCLATE 100 MG in DEXTROSE 5% 100 ML IV SCH ×3 (01:16→23:48)
[2021-01-09] MEDS: MEROPENEM 500 MG in SYRINGE 0 ML IV SCH ×5 (01:16→23:40)
[2021-01-09] MEDS: ACETAMINOPHEN 325 MG TAB PO PRN ×2 (02:44→19:46)
[2021-01-09] MEDS: NICOTINE 14 MG/24 HR PATCH TD SCH (08:58)
[2021-01-09] MEDS: ENOXAPARIN INJ 40 MG/0.4 ML SYR SQ SCH (09:00)
[2021-01-09 09:24] LABS: Hematocrit (blood only) 33.8 % (42-52); Hemoglobin 11.7 g/dL (14.0-18.0); Mean Corpuscular Hemoglobin 30.1 pg (25-34); Mean Corpuscular Hgb Conc 34.6 g/dL (32-36); Mean Corpuscular Volume 86.9 fL (80-100); Mean Platelet Volume 10.1 fL (7.4-10.4); Platelet Count 403 K/uL (130-400); RDW Coefficient of Variation 14.5 % (11.5-14.5); RDW Standard Deviation 44.9 fL (36.4-46.3); Red Blood Count 3.89 M/uL (4.7-6.1)
[2021-01-09 09:43] LABS: Albumin Level 2.4 gm/dl (3.4-5.0); Calcium 8.9 mg/dl (8.5-10.1); Creatinine Clr Calc Pharmacy 110.4 ml/min; Est GFR (African American) 97.8 ml/min; Est GFR (Non-African American) 84.3 ml/min; Magnesium 2.5 mg/dl (1.8-2.4); Potassium 3.3 mmol/L (3.5-5.1)
[2021-01-09 09:53] LABS: Albumin Globulin Ratio 0.5 (0.9-2); Bilirubin,Total 2.7 mg/dl (0.2-1); Globulin 4.8 gm/dl (2.5-4.0); Phosphorus 3.9 mg/dl (2.5-4.9); Total Protein 7.2 gm/dl (6.4-8.2)
[2021-01-09 09:55] LABS: Lymphocytes % (auto) 9.3 %; Neutrophils % (auto) 86.7 %
[2021-01-09 09:56] LABS: Basophils # (auto) 0.02 K/uL (0-0.2); Basophils % (auto) 0.1 %; Eosinophils # (auto) 0.23 K/uL (0-0.5); Immature Granulocytes # (auto) 0.36 K/uL (0.00-0.02); Immature Granulocytes % (auto) 1.6 %; Lymphocytes # (auto) 2.11 K/uL (1.2-3.4); Monocytes % (auto) 1.3 %; Neutrophils # (auto) 19.78 K/uL (1.4-6.5)
--- NOTE | 2021-01-09 10:10 | Electrocardiogram Report ---
Test Reason : Blood Pressure : / mmHG Vent. Rate : 109 BPM Atrial Rate : 109 BPM P-R Int : 114 ms QRS Dur : 080 ms QT Int : 332 ms P-R-T Axes : 057 055 -04 degrees QTc Int : 447 ms Sinus tachycardia Nonspecific T wave abnormality Abnormal ECG No previous ECGs available Confirmed by Marco Chiang ([id number]) on 01/09/2021 10:09:42 AM Referred By: REFERRED SELF Confirmed By:Marco Chiang
--- NOTE | 2021-01-09 11:55 | Hospitalist Progress Note ---
Date of Service January 09, 2021 Assessment & Plan (1) Sepsis: Plan: Sepsis with acute organ dysfunctionacute renal failuresource still not clear; rising lipase raises the question of primary pancreatic pathology No more fever spikes is positive; cultures negative to datelikely not bacteremic illness; no change in antibiotics at presentnoted improving leukocytosis Hypotension was clearly volume responsive. Procal was elevated. Concern of pancreatic malignancy. will obtain MRCP. Had discussion with GI and patient. will likely require ERCP tomorow. (2) Pancreatitis: Plan: CT with peripancreatic stranding; given rising lipase acute pancreatitis seems high on the differential but high spikes suggest superimposed bacterial infection GI input will start clear liquids-do not anticipate any invasive procedure anytime soon- he really wanted to eat; clinical assessment and tolerance more pertinent than lipase level (3) Acute hyponatremia: Plan: Mild and improvingfollow (4) Lymphadenopathy: Plan: With marked lymphadenopathy noted on CAT scan; given acuity intuitively would seem benign more likely but keep an open mind-comment about left upper quadrant nodule more concerning Might need biopsy at some point (5) Acute renal insufficiency: Plan: Improvedhypervolemic; stop IV fluid (6) Abnormal LFTs: Plan: Probably related to pancreatitis (7) Acute respiratory failure with hypoxia: Plan: hypervolemicDC IV fluids, BNP supports Somewhat unusual with normal kidney function and if normal cardiac function -1 dose Lasix, preemptive potassium 2D echo May need Lasix to be repeated Plan: Replace Phos Admission and Anticipated Discharge Date Admission Date: January 06, 2021 Subjective Patient reports feeling slightly better. He does report having a rough night last night. He states he is breatjing better, but states that he has not had a good night's sleep. was on speaker phone uring visit and all questions were answered and plan was given to patient. Review of Systems Review of Systems: All systems reviewed & are unremarkable except as noted in HPI & below Physical Exam Physical Exam: Constitutional and general: no distress, looks biologic age Head and face: Mild puffiness, atraumatic Eyes: Minimal scleral icterus, extraocular movements normal Neck: Supple, no JVD Musculoskeletal: No acute joint swelling, no bony abnormalities Skin/dermatologic/integument: No rash, no purpura Hematologic and lymphatic: pallor mild, no petechia Gastrointestinal/abdomen: Soft, nonsurgical Neurologic: Cranial nerves intact, nonfocal Psychiatry: Awake, alert, pleasant, communicative Cardiovascular: Heart rhythm regular, no rub, no murmur, no gallop Respiratory: Chest movements equal, no use of accessory muscles, no adventitious sounds Extremities: edema +, no cyanosis Results & Data Results & Data ([facility]) Vital Signs (Past 12 Hours) Vital Signs Temp Pulse Pulse Resp BP BP Pulse Ox 01/09/21 08:09 37.5 C 93 H 16 112/69 93 01/09/21 07:30 108 H 01/09/21 07:09 87 18 97 01/09/21 06:39 37.0 C 104 H 16 107/67 93/57 L 93 01/09/21 04:12 37.3 C 109 H 18 133/78 93 01/09/21 03:55 37.3 C 01/09/21 01:54 115 H 01/09/21 00:11 115 H 16 92 PG Care Time/CCT Total # of Minutes Spent Total Time Spent with Patient: Total time spent is greater than 50% in coordination of care (as documented) at patient's floor/unit and/or counseling patient: Prolonged Care Time 65 from 9:00 to 9:20 10:30 to 11:00 15:30 to 15:35 18:55 to 19:05 Coding Level of Care Code 83481 Subseq Hosp Care Lvl 3 (25 - SIGNIFICANT, SEPARATELY IDENTIFIABLE ) Diagnoses Sepsis A41.9 Pancreatitis K85.90 Acute hyponatremia E87.1 Lymphadenopathy R59.1 Acute renal insufficiency N28.9 Abnormal LFTs R94.5 Acute respiratory failure with hypoxia J96.01
[2021-01-09] MEDS: PANTOprazole 40 MG in SYRINGE 0 ML IV SCH (12:12)
[2021-01-09 12:45] LABS: Hepatitis B Surf Ag Rflx Conf Neg (Neg)
[2021-01-09 13:13] LABS: Hepatitis C IgG 13Yrs+Old_Rflx Neg (Neg)
[2021-01-09] MEDS ORDERED: LEVALBUTEROL HCL 0.63 MG/3 ML NEB NEB PRN (13:28)
--- NOTE | 2021-01-09 14:55 | Surgery Progress Note ---
Date of Service January 09, 2021 Assessment & Plan (1) Sepsis: Plan: 45 year-old male with unknown etiology of sepsis. CT scan with findings of inflammatory changes surrounding pancreas with retroperitoneal lymphadenopathy, LUQ nodule, and dilated appendix. Elevated lipase up to 2486(yesterday). Leukocytosis persists and is increasing today. t. bili, d. bili, lfts have increased today ?? Biliary obstruction from lesion causing cholangitis and pancreatitis? Plan: Would recommend GI re-evaluate for possible ERCP given elevated wbc, increasing t. bili, and lfts. May have biliary obstruction from lesion with resultant pancreatitis and lymphadenopathy. As for the dilated appendix, patient is completely asymptomatic with no abdominal pain, guarding in RLQ. Continue IV antibiotics monitor labs NPO recommend if need for further GI work-up Will continue to follow (2) Pancreatitis: (3) Abnormal LFTs: (4) Lymphadenopathy: (5) Leukocytosis: Plan: Dr. Munoz has seen patient and agrees with above. Admission and Anticipated Discharge Date Admission Date: January 06, 2021 Subjective feeling pretty well this morning, second best day he has had since this all started no abdominal pain no nausea or vomiting tolerated breakfast this morning no fevers last night Physical Exam Constitutional: WD/WN, vitals as above no acute distress and not ill appearing Respiratory: normal respiratory effort; no respiratory distress, no labored breathing and no retractions Gastrointestinal (Abdomen): Inspection/Auscultation: abdomen normal to inspection and + hypoactive bowel sounds; abdomen not distended Percussion/Palpation: abdomen soft; abdomen nontender, no guarding and abdomen not rigid Skin: no rashes, warm and dry Psychiatric: Orientation: alert and oriented x 3 Results & Data ([facility]) Vital Signs (Past 12 Hours) Vital Signs Temp Pulse Pulse Resp BP BP Pulse Ox 01/09/21 13:00 80 18 97 01/09/21 12:36 37.3 C 101 H 18 108/69 94 01/09/21 08:09 37.5 C 93 H 16 112/69 93 01/09/21 07:30 108 H 01/09/21 07:09 87 18 97 01/09/21 06:39 37.0 C 104 H 16 107/67 93/57 L 93 01/09/21 04:12 37.3 C 109 H 18 133/78 93 01/09/21 03:55 37.3 C Laboratory Results 01/09/21 01/09/21 01/09/21 Range/Units 08:54 08:54 08:48 WBC (4.8-10.8) K/uL RBC (4.7-6.1) M/uL Hgb (14.0-18.0) g/dL Hct (42-52) % MCV (80-100) fL MCH (25-34) pg MCHC (32-36) g/dL RDW Std Deviation (36.4-46.3) fL RDW Coeff of Omar (11.5-14.5) % Plt Count (130-400) K/uL MPV (7.4-10.4) fL Immature Gran % (Auto) % Neut % (Auto) % Lymph % (Auto) % [place] % (Auto) % Eos % (Auto) % Baso % (Auto) % Neut # (Auto) (1.4-6.5) K/uL Lymph # (Auto) (1.2-3.4) K/uL [place] # (Auto) (0.11-0.59) K/uL Eos # (Auto) (0-0.5) K/uL Baso # (Auto) (0-0.2) K/uL Immature Gran # (Auto) (0.00-0.02) K/uL Sodium (136-145) mmol/L Potassium (3.5-5.1) mmol/L Chloride (98-107) mmol/L Carbon Dioxide (21-32) mmol/L Anion Gap (3-11) BUN (7-18) mg/dl Creatinine (0.6-1.4) mg/dl Est Cr Clr Drug Dosing ml/min Est GFR ( Amer) ml/min Est GFR (Non-Af Amer) ml/min Fasting Glucose (70-99) mg/dl Calcium (8.5-10.1) mg/dl Phosphorus (2.5-4.9) mg/dl Magnesium (1.8-2.4) mg/dl Total Bilirubin (0.2-1) mg/dl Direct Bilirubin 2.0 H (0-0.2) mg/dl AST (15-37) U/L ALT (12-78) U/L Alkaline Phosphatase (45-117) U/L Total Creatine Kinase (39-308) U/L Total Protein (6.4-8.2) gm/dl Albumin (3.4-5.0) gm/dl Globulin (2.5-4.0) gm/dl Albumin/Globulin Ratio (0.9-2) Lipase (73-393) U/L Procalcitonin (0-0.5) ng/ml Hepatitis A IgM Ab Pending Hep Bs Antigen Neg (Neg) Hep B Core IgM Ab Pending Hepatitis C Antibody Neg (Neg) 01/09/21 01/09/21 01/09/21 Range/Units 08:48 08:48 08:48 WBC 22.80 H (4.8-10.8) K/uL RBC 3.89 L (4.7-6.1) M/uL Hgb 11.7 L (14.0-18.0) g/dL Hct 33.8 L (42-52) % MCV 86.9 (80-100) fL MCH 30.1 (25-34) pg MCHC 34.6 (32-36) g/dL RDW Std Deviation 44.9 (36.4-46.3) fL RDW Coeff of Omar 14.5 (11.5-14.5) % Plt Count 403 H D (130-400) K/uL MPV 10.1 (7.4-10.4) fL Immature Gran % (Auto) 1.6 % Neut % (Auto) 86.7 % Lymph % (Auto) 9.3 % [place] % (Auto) 1.3 % Eos % (Auto) 1.0 % Baso % (Auto) 0.1 % Neut # (Auto) 19.78 H (1.4-6.5) K/uL Lymph # (Auto) 2.11 (1.2-3.4) K/uL [place] # (Auto) 0.30 (0.11-0.59) K/uL Eos # (Auto) 0.23 (0-0.5) K/uL Baso # (Auto) 0.02 (0-0.2) K/uL Immature Gran # (Auto) 0.36 H (0.00-0.02) K/uL Sodium 135 L (136-145) mmol/L Potassium 3.3 L (3.5-5.1) mmol/L Chloride 100 (98-107) mmol/L Carbon Dioxide 26 (21-32) mmol/L Anion Gap 9.0 (3-11) BUN 14 (7-18) mg/dl Creatinine 1.06 (0.6-1.4) mg/dl Est Cr Clr Drug Dosing 110.4 ml/min Est GFR ( Amer) 97.8 ml/min Est GFR (Non-Af Amer) 84.3 ml/min Fasting Glucose 139 H (70-99) mg/dl Calcium 8.9 (8.5-10.1) mg/dl Phosphorus 3.9 D (2.5-4.9) mg/dl Magnesium 2.5 H (1.8-2.4) mg/dl Total Bilirubin 2.7 H (0.2-1) mg/dl Direct Bilirubin (0-0.2) mg/dl AST 105 H (15-37) U/L ALT 90 H (12-78) U/L Alkaline Phosphatase 145 H (45-117) U/L Total Creatine Kinase 389 H (39-308) U/L Total Protein 7.2 (6.4-8.2) gm/dl Albumin 2.4 L (3.4-5.0) gm/dl Globulin 4.8 H (2.5-4.0) gm/dl Albumin/Globulin Ratio 0.5 L (0.9-2) Lipase 1869 H (73-393) U/L Procalcitonin 7.56 H (0-0.5) ng/ml Hepatitis A IgM Ab Hep Bs Antigen (Neg) Hep B Core IgM Ab Hepatitis C Antibody (Neg)
--- NOTE | 2021-01-09 20:03 | Magnetic Resonance Report ---
MR MRCP HISTORY: elevated bilirubin and lipase, lymphadenopathy, TECHNIQUE: MRCP of the abdomen was performed without contrast according to standard departmental prot ocol. COMPARISON STUDY: Abdomen and pelvis CT 01/06/2021. FINDINGS: Trace pericardial effusion, unchanged. Patchy densities within the right lung base persist. No hepatic or splenic masses. The pancreas is unremarkable. Mild bilateral perinephric edema persist s. No hydronephrosis. There are few prominent retroperitoneal lymph nodes, unchanged. The visualized loops of bowel show no wall thickening or obstruction. The IVC is patent. Normal caliber abdominal ao rta. Motion artifact results in suboptimal evaluation of the common bile duct and main pancreatic lesa t. However, the common bile duct appears to be normal in course and caliber. No definite filling defe cts within the common bile duct. The main pancreatic duct does not appear dilated. IMPRESSION: 1. Suboptimal evaluation of the common bile duct and main pancreatic duct due to the motion artifact. However, the common bile duct and main pancreatic duct appear to be normal and course and caliber. 2. Mild bilateral perinephric edema and borderline retroperitoneal lymphadenopathy, unchanged. The pe rinephric edema is nonspecific could be due to a pyelonephritis or glomerulonephritis. Recommend jerri elation with renal function studies. 3. The pancreas appears to be within normal limits. No peripancreatic inflammatory change to suggest acute pancreatitis. 4. Trace pericardial effusion, unchanged. ACT 112: Negative or not required by law. Electronically signed by: Kapil Brower M.D. 01/09/2021 8:01 PM
[2021-01-10] MEDS: MEROPENEM 500 MG in SYRINGE 0 ML IV SCH ×3 (05:40→17:49)
[2021-01-10 07:37] LABS: Hematocrit (blood only) 32.6 % (42-52); Hemoglobin 11.1 g/dL (14.0-18.0); Mean Corpuscular Hemoglobin 30.2 pg (25-34); Mean Corpuscular Volume 88.8 fL (80-100); Mean Platelet Volume 9.6 fL (7.4-10.4); Platelet Count 514 K/uL (130-400); RDW Coefficient of Variation 14.8 % (11.5-14.5); RDW Standard Deviation 47.9 fL (36.4-46.3); Red Blood Count 3.67 M/uL (4.7-6.1); White Blood Count 26.25 K/uL (4.8-10.8)
[2021-01-10 08:07] LABS: Basophils # (auto) 0.05 K/uL (0-0.2); Basophils % (auto) 0.2 %; Dohle Bodies 1+; Eosinophils # (auto) 0.36 K/uL (0-0.5); Eosinophils % (auto) 1.4 %; Giant Platelets 1+; Immature Granulocytes # (auto) 0.74 K/uL (0.00-0.02); Immature Granulocytes % (auto) 2.8 %; Lymphocytes # (auto) 2.37 K/uL (1.2-3.4); Monocytes # (auto) 0.43 K/uL (0.11-0.59); Monocytes % (auto) 1.6 %; Toxic Granulation 1+
[2021-01-10 08:17] LABS: Albumin Level 2.2 gm/dl (3.4-5.0); Calcium 8.7 mg/dl (8.5-10.1); Creatinine Clr Calc Pharmacy 108.3 ml/min; Est GFR (African American) 95.6 ml/min; Est GFR (Non-African American) 82.5 ml/min; Magnesium 2.9 mg/dl (1.8-2.4); Potassium 3.5 mmol/L (3.5-5.1)
[2021-01-10 08:39] LABS: Albumin Globulin Ratio 0.4 (0.9-2); Bilirubin,Total 1.5 mg/dl (0.2-1); Phosphorus 3.7 mg/dl (2.5-4.9); Total Protein 7.2 gm/dl (6.4-8.2)
[2021-01-10] MEDS: LACTATED RINGER'S 1,000 ML IV SCH ×2 (10:47→19:18)
[2021-01-10] MEDS: NICOTINE 14 MG/24 HR PATCH TD SCH (10:48)
[2021-01-10] MEDS: PANTOprazole 40 MG in SYRINGE 0 ML IV SCH (10:49)
[2021-01-10] MEDS: ENOXAPARIN INJ 40 MG/0.4 ML SYR SQ SCH (10:49)
--- NOTE | 2021-01-10 11:21 | Gastroenterology Progress Note ---
Date of Service January 10, 2021 Assessment & Plan (1) Abnormal LFTs: (2) Pancreatitis: (3) Lymphadenopathy: Plan: -Keep NPO after midnight for EUS/possible ERCP with Dr. Garcia of [facility] on 01/11/21 -Follow LFTs -Continue IV antibiotics per primary team -Will likely need biopsy of lymph node abnormalities visualized on CT imaging -Supportive care per primary team Admission and Anticipated Discharge Date Admission Date: January 06, 2021 Supervising Physician Co-Signing Physician Notes Agree with LUIS E Vilchis as above EUS/ERCP with Dr. Terry tomorrow Subjective Patient is a 45 yo male with sepsis and pancreatitis. He has elevated LFTs with an AST of 69, ALT of 87, T Bili 1.5, and WBC count of 26,250. Patient denies any pain or discomfort today. No jaundice or fever. Review of Systems 2 Constitutional: no fever and no chills Gastrointestinal: no abdominal pain and no heartburn Physical Exam Constitutional: WD/WN, vitals as above Respiratory: normal respiratory effort, lungs clear to auscultation Gastrointestinal (Abdomen): normal bowel sounds, soft, nontender, no hepatosplenomegaly Psychiatric: Orientation: alert and oriented x 3 Results & Data Results & Data ([facility]) Vital Signs (Past 12 Hours) Vital Signs Temp Pulse Pulse Resp BP Pulse Ox 01/10/21 07:31 94 H 01/10/21 07:05 37.6 C H 96 H 20 99/61 L 92 01/09/21 23:20 37.3 C 96 H 20 104/58 L 93 PG Care Time/CCT Total # of Minutes Spent Total Time Spent with Patient: Total time spent is greater than 50% in coordination of care (as documented) at patient's floor/unit and/or counseling patient: Coding Level of Care Code 05423 Subseq Hosp Care Lvl 3 Diagnoses Abnormal LFTs R94.5 Pancreatitis K85.90 Lymphadenopathy R59.1
[2021-01-10] MEDS: DOXYCYCLINE HYCLATE 100 MG in DEXTROSE 5% 100 ML IV SCH (12:20)
--- NOTE | 2021-01-10 13:36 | Surgery Progress Note ---
Date of Service January 10, 2021 Assessment & Plan (1) Sepsis: Plan: 45 year-old male with unknown etiology of sepsis. CT scan with findings of inflammatory changes surrounding pancreas with retroperitoneal lymphadenopathy, LUQ nodule, and dilated appendix. Elevated lipase up to 2483. Leukocytosis persists and is increasing. callie mcmanus, lfts have increased now slightly improved Leukocytosis up to 26K today ?? Biliary obstruction from lesion causing cholangitis and pancreatitis? Plan: Gi planning for EUS/ERCP tomorrow 01/11/21 As for the dilated appendix, patient is completely asymptomatic with no abdominal pain, guarding in RLQ. Continue IV antibiotics monitor labs NPO Will continue to follow (2) Pancreatitis: (3) Abnormal LFTs: (4) Lymphadenopathy: (5) Leukocytosis: Admission and Anticipated Discharge Date Admission Date: January 06, 2021 Subjective feeling okay no abdominal pain no n/v tolerated diet this morning had bowel movement soft formed with no blood today GI planning for scope tomorrow Physical Exam Constitutional: WD/WN, vitals as above Respiratory: normal respiratory effort; no respiratory distress, no labored breathing and no retractions Gastrointestinal (Abdomen): Inspection/Auscultation: abdomen normal to inspection; abdomen not distended Percussion/Palpation: abdomen soft; abdomen nontender, no guarding and abdomen not rigid Skin: no rashes, warm and dry Psychiatric: A+Ox3, euthymic affect Results & Data ([facility]) Vital Signs (Past 12 Hours) Vital Signs Temp Pulse Pulse Resp BP BP Pulse Ox 01/10/21 12:56 37.0 C 95 H 20 113/67 90 01/10/21 07:31 94 H 01/10/21 07:05 37.6 C H 96 H 20 99/61 L 92 Laboratory Results 01/10/21 01/10/21 01/10/21 Range/Units 08:54 08:54 07:25 WBC (4.8-10.8) K/uL RBC (4.7-6.1) M/uL Hgb (14.0-18.0) g/dL Hct (42-52) % MCV (80-100) fL MCH (25-34) pg MCHC (32-36) g/dL RDW Std Deviation (36.4-46.3) fL RDW Coeff of Omar (11.5-14.5) % Plt Count (130-400) K/uL MPV (7.4-10.4) fL Immature Gran % (Auto) % Neut % (Auto) % Lymph % (Auto) % [place] % (Auto) % Eos % (Auto) % Baso % (Auto) % Neut # (Auto) (1.4-6.5) K/uL Lymph # (Auto) (1.2-3.4) K/uL [place] # (Auto) (0.11-0.59) K/uL Eos # (Auto) (0-0.5) K/uL Baso # (Auto) (0-0.2) K/uL Immature Gran # (Auto) (0.00-0.02) K/uL Toxic Granulation Dohle Bodies Giant Platelets Sodium 138 (136-145) mmol/L Potassium 3.5 (3.5-5.1) mmol/L Chloride 102 (98-107) mmol/L Carbon Dioxide 26 (21-32) mmol/L Anion Gap 10.0 (3-11) BUN 14 (7-18) mg/dl Creatinine 1.08 (0.6-1.4) mg/dl Est Cr Clr Drug Dosing 108.3 ml/min Est GFR ( Amer) 95.6 ml/min Est GFR (Non-Af Amer) 82.5 ml/min Fasting Glucose 133 H (70-99) mg/dl Lactate 1.5 (0.4-2.0) mmol/L Calcium 8.7 (8.5-10.1) mg/dl Phosphorus 3.7 (2.5-4.9) mg/dl Magnesium 2.9 H (1.8-2.4) mg/dl Total Bilirubin 1.5 H (0.2-1) mg/dl AST 69 H (15-37) U/L ALT 87 H (12-78) U/L Alkaline Phosphatase 148 H (45-117) U/L Total Protein 7.2 (6.4-8.2) gm/dl Albumin 2.2 L (3.4-5.0) gm/dl Globulin 5.0 H (2.5-4.0) gm/dl Albumin/Globulin Ratio 0.4 L (0.9-2) Procalcitonin 4.16 H (0-0.5) ng/ml 01/10/21 Range/Units 07:25 WBC 26.25 H (4.8-10.8) K/uL RBC 3.67 L (4.7-6.1) M/uL Hgb 11.1 L (14.0-18.0) g/dL Hct 32.6 L (42-52) % MCV 88.8 (80-100) fL MCH 30.2 (25-34) pg MCHC 34.0 (32-36) g/dL RDW Std Deviation 47.9 H (36.4-46.3) fL RDW Coeff of Omar 14.8 H (11.5-14.5) % Plt Count 514 H (130-400) K/uL MPV 9.6 (7.4-10.4) fL Immature Gran % (Auto) 2.8 % Neut % (Auto) 85.0 % Lymph % (Auto) 9.0 % [place] % (Auto) 1.6 % Eos % (Auto) 1.4 % Baso % (Auto) 0.2 % Neut # (Auto) 22.30 H (1.4-6.5) K/uL Lymph # (Auto) 2.37 (1.2-3.4) K/uL [place] # (Auto) 0.43 (0.11-0.59) K/uL Eos # (Auto) 0.36 (0-0.5) K/uL Baso # (Auto) 0.05 (0-0.2) K/uL Immature Gran # (Auto) 0.74 H (0.00-0.02) K/uL Toxic Granulation 1+ Dohle Bodies 1+ Giant Platelets 1+ Sodium (136-145) mmol/L Potassium (3.5-5.1) mmol/L Chloride (98-107) mmol/L Carbon Dioxide (21-32) mmol/L Anion Gap (3-11) BUN (7-18) mg/dl Creatinine (0.6-1.4) mg/dl Est Cr Clr Drug Dosing ml/min Est GFR ( Amer) ml/min Est GFR (Non-Af Amer) ml/min Fasting Glucose (70-99) mg/dl Lactate (0.4-2.0) mmol/L Calcium (8.5-10.1) mg/dl Phosphorus (2.5-4.9) mg/dl Magnesium (1.8-2.4) mg/dl Total Bilirubin (0.2-1) mg/dl AST (15-37) U/L ALT (12-78) U/L Alkaline Phosphatase (45-117) U/L Total Protein (6.4-8.2) gm/dl Albumin (3.4-5.0) gm/dl Globulin (2.5-4.0) gm/dl Albumin/Globulin Ratio (0.9-2) Procalcitonin (0-0.5) ng/ml Diagnostic Findings MR MRCP HISTORY: elevated bilirubin and lipase, lymphadenopathy, TECHNIQUE: MRCP of the abdomen was performed without contrast according to standard departmental protocol. COMPARISON STUDY: Abdomen and pelvis CT 01/06/2021. FINDINGS: Trace pericardial effusion, unchanged. Patchy densities within the right lung base persist. No hepatic or splenic masses. The pancreas is unremarkable. Mild bilateral perinephric edema persists. No hydronephrosis. There are few prominent retroperitoneal lymph nodes, unchanged. The visualized loops of bowel show no wall thickening or obstruction. The IVC is patent. Normal caliber abdominal aorta. Motion artifact results in suboptimal evaluation of the common bile duct and main pancreatic duct. However, the common bile duct appears to be normal in course and caliber. No definite filling defects within the common bile duct. The main pancreatic duct does not appear dilated. IMPRESSION: 1. Suboptimal evaluation of the common bile duct and main pancreatic duct due to the motion artifact. However, the common bile duct and main pancreatic duct appear to be normal and course and caliber. 2. Mild bilateral perinephric edema and borderline retroperitoneal lymphadenopathy, unchanged. The perinephric edema is nonspecific could be due to a pyelonephritis or glomerulonephritis. Recommend correlation with renal function studies. 3. The pancreas appears to be within normal limits. No peripancreatic inflammatory change to suggest acute pancreatitis. 4. Trace pericardial effusion, unchanged.
--- NOTE | 2021-01-10 20:58 | Hospitalist Progress Note ---
Date of Service January 10, 2021 Assessment & Plan (1) Sepsis: Plan: Sepsis with acute organ dysfunctionacute renal failuresource still not clear; rising lipase raises the question of primary pancreatic pathology No more fever spikes is positive; cultures negative to datelikely not bacteremic illness; no change in antibiotics at presentnoted improving leukocytosis Hypotension was clearly volume responsive. Procal was elevated. Concern of pancreatic malignancy. MRCP was negative. Had discussion with GI and patient. will likely require ERCP tomorrow. Bilirrubin has decreased and fever has also subsided. will continue above treatment plan. will benefit from ERCP ir biopsy is needed. (2) Pancreatitis: Plan: CT with peripancreatic stranding; given rising lipase acute pancreatitis seems high on the differential but high spikes suggest superimposed bacterial infection GI input as above.l (3) Acute hyponatremia: Plan: Mild and improvingfollow (4) Lymphadenopathy: Plan: With marked lymphadenopathy noted on CAT scan; given acuity intuitively would s eem benign more likely but keep an open mind-comment about left upper quadrant nodule more concerning Might need biopsy at some point (5) Acute renal insufficiency: Plan: Improvedhypervolemic; stop IV fluid (6) Abnormal LFTs: Plan: Probably related to pancreatitis (7) Acute respiratory failure with hypoxia: Plan: hypervolemicDC IV fluids, BNP supports Somewhat unusual with normal kidney function and if normal cardiac function -1 dose Lasix, preemptive potassium 2D echo May need Lasix to be repeated Plan: Replace Phos Admission and Anticipated Discharge Date Admission Date: January 06, 2021 Subjective Patient reports feeling better. He had a better nights sleep. Review of Systems Review of Systems: All systems reviewed & are unremarkable except as noted in HPI & below Physical Exam Physical Exam: Constitutional and general: no distress, looks biologic age Head and face: Mild puffiness, atraumatic Eyes: Minimal scleral icterus, extraocular movements normal Neck: Supple, no JVD Musculoskeletal: No acute joint swelling, no bony abnormalities Skin/dermatologic/integument: No rash, no purpura Hematologic and lymphatic: pallor mild, no petechia Gastrointestinal/abdomen: Soft, nonsurgical Neurologic: Cranial nerves intact, nonfocal Psychiatry: Awake, alert, pleasant, communicative Cardiovascular: Heart rhythm regular, no rub, no murmur, no gallop Respiratory: Chest movements equal, no use of accessory muscles, no adventitious sounds Extremities: edema +, no cyanosis Results & Data Results & Data ([facility]) Vital Signs (Past 12 Hours) Vital Signs Temp Pulse Pulse Resp BP BP Pulse Ox 01/10/21 19:13 36.7 C 96 H 18 124/68 93 01/10/21 15:20 37.0 C 92 H 18 110/66 93 01/10/21 15:16 98 H 01/10/21 12:56 37.0 C 95 H 20 113/67 90 PG Care Time/CCT Total # of Minutes Spent Total Time Spent with Patient: Total time spent is greater than 50% in coordination of care (as documented) at patient's floor/unit and/or counseling patient: Coding Level of Care Code 23019 Subseq Hosp Care Lvl 3 Diagnoses Sepsis A41.9 Pancreatitis K85.90 Acute hyponatremia E87.1 Lymphadenopathy R59.1 Acute renal insufficiency N28.9 Abnormal LFTs R94.5 Acute respiratory failure with hypoxia J96.01 Time Spent (min) 35
[2021-01-11] MEDS: MEROPENEM 500 MG in SYRINGE 0 ML IV SCH ×5 (00:02→23:28)
[2021-01-11] MEDS: DOXYCYCLINE HYCLATE 100 MG in DEXTROSE 5% 100 ML IV SCH ×3 (00:31→23:28)
[2021-01-11 03:32] LABS: Hepatitis A Antibody IgM NON-REACTIVE (NON-REACTIVE); Hepatitis B Core Antibody IgM NON-REACTIVE (NON-REACTIVE)
[2021-01-11] MEDS: LACTATED RINGER'S 1,000 ML IV SCH ×3 (05:32→18:19)
[2021-01-11] MEDS: NICOTINE 14 MG/24 HR PATCH TD SCH (08:11)
[2021-01-11] MEDS: ENOXAPARIN INJ 40 MG/0.4 ML SYR SQ SCH (08:11)
[2021-01-11 08:28] LABS: Basophils # (auto) 0.04 K/uL (0-0.2); Basophils % (auto) 0.2 %; Eosinophils # (auto) 0.42 K/uL (0-0.5); Eosinophils % (auto) 1.8 %; Hematocrit (blood only) 33.1 % (42-52); Immature Granulocytes % (auto) 4.3 %; Lymphocytes # (auto) 2.96 K/uL (1.2-3.4); Lymphocytes % (auto) 12.7 %; Mean Corpuscular Hgb Conc 33.2 g/dL (32-36); Mean Corpuscular Volume 90.2 fL (80-100); Mean Platelet Volume 9.1 fL (7.4-10.4); Monocytes # (auto) 0.74 K/uL (0.11-0.59); Monocytes % (auto) 3.2 %; Neutrophils # (auto) 18.19 K/uL (1.4-6.5); Neutrophils % (auto) 77.8 %; Platelet Count 616 K/uL (130-400); RDW Standard Deviation 48.2 fL (36.4-46.3); Red Blood Count 3.67 M/uL (4.7-6.1); White Blood Count 23.35 K/uL (4.8-10.8)
[2021-01-11 09:05] LABS: Albumin Level 2.3 gm/dl (3.4-5.0); BUN Creatinine Ratio 17.7 (10-20); Calcium 8.9 mg/dl (8.5-10.1); Creatinine Clr Calc Pharmacy 134.2 ml/min; Est GFR (African American) 121.4 ml/min; Est GFR (Non-African American) 104.7 ml/min; Potassium 3.8 mmol/L (3.5-5.1)
[2021-01-11 09:18] LABS: Albumin Globulin Ratio 0.5 (0.9-2); Bilirubin,Total 0.8 mg/dl (0.2-1); Globulin 4.8 gm/dl (2.5-4.0); Magnesium 2.4 mg/dl (1.8-2.4); Total Protein 7.1 gm/dl (6.4-8.2)
[2021-01-11] MEDS ORDERED: INDOMETHACIN 50 MG SUPP PR ONE ×2 (09:48→15:50)
--- NOTE | 2021-01-11 10:06 | Gastroenterology Progress Note ---
Date of Service January 11, 2021 Assessment & Plan (1) Lymphadenopathy: (2) Pancreatitis: Plan: Pt is a 45 yo male seen for pancreatitis and lymphadenopathy (retroperitoneal and mesenteric) - Keep NPO - LR IVF support - Plan for EUS/ERCP in OR by Dr. Garcia today - Further rec after procedure is completed Admission and Anticipated Discharge Date Admission Date: January 06, 2021 Subjective Pt denies abd pain, n/v, fever, chills, CP, SOB. Has been NPO for EUS/ERCP today Review of Systems Review of Systems: All systems reviewed & are unremarkable except as noted in HPI & below Physical Exam Constitutional: WD/WN, vitals as above well groomed, cooperative and comfortable Eyes: PERRL, conjunctivae normal, anicteric sclerae ENMT: external ear and nose normal, oropharynx normal Respiratory: normal respiratory effort, lungs clear to auscultation Cardiovascular: RRR, no murmur, no edema Gastrointestinal (Abdomen): normal bowel sounds, soft, nontender, no hepatosplenomegaly Skin: no rashes, warm and dry no jaundice Psychiatric: A+Ox3, euthymic affect Lymphatic: no lymphedema Results & Data ([facility]) Vital Signs (Past 12 Hours) Vital Signs Temp Pulse Pulse Resp BP Pulse Ox 01/11/21 08:03 36.8 C 90 18 120/78 92 01/11/21 06:57 36.6 C 91 H 18 115/73 93 01/11/21 03:03 36.9 C 95 H 18 117/68 92 01/10/21 23:03 98 H 01/10/21 22:54 36.9 C 97 H 20 132/77 94
[2021-01-11] MEDS: PANTOprazole 40 MG in SYRINGE 0 ML IV SCH (11:44)
--- NOTE | 2021-01-11 13:00 | Surgery Progress Note ---
Date of Service January 11, 2021 Assessment & Plan (1) Sepsis: Plan: 45 year-old male with unknown etiology of sepsis. CT scan with findings of inflammatory changes surrounding pancreas with retroperitoneal lymphadenopathy, LUQ nodule, and dilated appendix. Elevated lipase up to 2483. Leukocytosis persists 23K today. t. bili has normalzied, LFTs are slightly increased Leukocytosis 23K today ?? Biliary obstruction from lesion causing cholangitis and pancreatitis? Plan: Keep NPO for EUS/ERCP As for the dilated appendix, patient is completely asymptomatic with no abdominal pain, guarding in RLQ. Continue IV antibiotics monitor labs Will continue to follow (2) Pancreatitis: (3) Abnormal LFTs: (4) Lymphadenopathy: (5) Leukocytosis: Plan: Dr. Munoz has seen patient and agrees with above Admission and Anticipated Discharge Date Admission Date: January 06, 2021 Subjective denies of any abdominal pain, n/v npo for EUS/ERCP today Physical Exam Constitutional: WD/WN, vitals as above + obese; no acute distress and not ill appearing Respiratory: normal respiratory effort; no respiratory distress, no labored breathing and no retractions Skin: no rashes, warm and dry Psychiatric: Orientation: alert and oriented x 3 Results & Data ([facility]) Vital Signs (Past 12 Hours) Vital Signs Temp Pulse Pulse Resp BP Pulse Ox 01/11/21 08:03 36.8 C 90 18 120/78 92 01/11/21 07:00 90 01/11/21 06:57 36.6 C 91 H 18 115/73 93 01/11/21 03:03 36.9 C 95 H 18 117/68 92 Laboratory Results 01/11/21 01/11/21 01/09/21 Range/Units 08:10 08:10 08:54 WBC 23.35 H (4.8-10.8) K/uL RBC 3.67 L (4.7-6.1) M/uL Hgb 11.0 L (14.0-18.0) g/dL Hct 33.1 L (42-52) % MCV 90.2 (80-100) fL MCH 30.0 (25-34) pg MCHC 33.2 (32-36) g/dL RDW Std Deviation 48.2 H (36.4-46.3) fL RDW Coeff of Omar 15.0 H (11.5-14.5) % Plt Count 616 H (130-400) K/uL MPV 9.1 (7.4-10.4) fL Immature Gran % (Auto) 4.3 % Neut % (Auto) 77.8 % Lymph % (Auto) 12.7 % [place] % (Auto) 3.2 % Eos % (Auto) 1.8 % Baso % (Auto) 0.2 % Neut # (Auto) 18.19 H (1.4-6.5) K/uL Lymph # (Auto) 2.96 (1.2-3.4) K/uL [place] # (Auto) 0.74 H (0.11-0.59) K/uL Eos # (Auto) 0.42 (0-0.5) K/uL Baso # (Auto) 0.04 (0-0.2) K/uL Immature Gran # (Auto) 1.00 H (0.00-0.02) K/uL Sodium 141 (136-145) mmol/L Potassium 3.8 (3.5-5.1) mmol/L Chloride 106 (98-107) mmol/L Carbon Dioxide 27 (21-32) mmol/L Anion Gap 8.0 (3-11) BUN 15 (7-18) mg/dl Creatinine 0.86 (0.6-1.4) mg/dl Est Cr Clr Drug Dosing 134.2 ml/min Est GFR ( Amer) 121.4 ml/min Est GFR (Non-Af Amer) 104.7 ml/min BUN/Creatinine Ratio 17.7 (10-20) Glucose 103 H (70-99) mg/dl Fasting Glucose 103 H (70-99) mg/dl Calcium 8.9 (8.5-10.1) mg/dl Magnesium 2.4 (1.8-2.4) mg/dl Total Bilirubin 0.8 D (0.2-1) mg/dl AST 71 H (15-37) U/L ALT 98 H (12-78) U/L Alkaline Phosphatase 158 H (45-117) U/L Total Protein 7.1 (6.4-8.2) gm/dl Albumin 2.3 L (3.4-5.0) gm/dl Globulin 4.8 H (2.5-4.0) gm/dl Albumin/Globulin Ratio 0.5 L (0.9-2) Hepatitis A IgM Ab NON-REACTIVE (NON-REACTIVE) Hep B Core IgM Ab NON-REACTIVE (NON-REACTIVE)
--- NOTE | 2021-01-11 14:14 | Anesthesiology Consultation ---
Date of Service January 11, 2021 Assessment & Plan (1) Encounter for pre-operative examination: Chart Review Chart Review: entry level management initiated History Surgery Operation Date: 01/11/21 07:00 Proposed Procedures p Endoscopic Ultrasonography - Luly Garcia MD s Endoscopic Retrograde Cholangiopancreatogram - Luly Garcia MD Height/Weight Height: 5 ft 8 in Weight: 116.1 kg Allergies Allergy/AdvReac Type Severity Reaction Status Date / Time shellfish derived Allergy Severe Swelling Unverified 01/06/21 13:41 including Face Egg Derived Allergy Intermediate Abdominal Unverified 01/06/21 13:41 Pain and Constipation Medications Home Medications Medication Instructions Recorded Confirmed Last Taken acetaminophen 500 mg tablet 500 mg PO Q6H PRN 01/06/21 01/06/21 01/06/21 (Tylenol Extra Strength) esomeprazole magnesium 20 mg 20 mg PO DAILY 01/06/21 01/06/21 01/06/21 capsule,delayed release (Nexium) Active Medications Generic Name Dose Route Start Last Admin Trade Name Freq PRN Reason Stop Dose Admin Acetaminophen 650 mg 01/06/21 19:37 01/09/21 19:46 Acetaminophen 325 Mg Tab PO 02/05/21 19:36 650 mg Q4H PRN Administration pain or fever Enoxaparin Sodium 40 mg 01/07/21 11:00 01/11/21 08:11 Enoxaparin Inj 40 Mg/0.4 Ml Syr SQ 02/06/21 10:59 Not Given QAM EVIE Meropenem 500 mg/ Syringe 10 mls @ 2 mls/min 01/07/21 12:00 01/11/21 11:44 IV 01/17/21 11:59 2 mls/min Q6H EVIE Administration Protocol Doxycycline Hyclate 100 mg/ 110 mls @ 50 mls/hr 01/07/21 12:00 01/11/21 11:44 Dextrose IV 01/17/21 12:01 50 mls/hr Q12H EVIE Administration Pantoprazole Sodium 40 mg/ 10 mls @ 5 mls/min 01/07/21 11:00 01/11/21 11:44 Syringe IV 02/06/21 10:59 5 mls/min DAILY@1100 EVIE Administration Lactated Ringer's 1,000 mls @ 75 mls/hr 01/10/21 09:45 01/11/21 09:45 Lr IV 02/09/21 09:44 75 mls/hr .[id number] EVIE Administration Miscellaneous 1 ea 01/07/21 08:59 01/11/21 08:10 Remove Nicoderm Patch N/A 02/06/21 08:58 1 ea DAILY@0859 EIVE Administration Nicotine 14 mg 01/07/21 09:00 01/11/21 08:11 Nicotine 14 Mg/24 Hr Patch TD 02/06/21 08:59 Not Given QAM EVIE Past Medical History Medical History No significant past medical history Past Surgical History Surgical History No significant past surgical history Social History Smoking Status: Current every day smoker tobacco type: cigarettes Hx Alcohol Use: No Hx Substance Use: No substance use type: does not use Physical Exam Vital Signs Last Vital Signs Temp 98.2 F 01/11/21 08:03 Pulse 90 01/11/21 08:03 Resp 18 01/11/21 08:03 BP 120/78 01/11/21 08:03 Pulse Ox 92 01/11/21 08:03 Testing Laboratory Results 01/11/21 08:10 01/11/21 08:10 Urine Color [place] 01/06/21 12:20 Urine Appearance Cloudy (Clear) A 01/06/21 12:20 Urine pH 5.5 (4.5-7.5) 01/06/21 12:20 Ur Specific [place] 1.026 (1.000-1.030) 01/06/21 12:20 Urine Protein 3+ (Negative) H 01/06/21 12:20 Urine Glucose (UA) Trace (Negative) H 01/06/21 12:20 Urine Ketones Trace (Negative) H 01/06/21 12:20 Urine Nitrite Positive (Negative) A 01/06/21 12:20 Ur Leukocyte Esterase 1+ (Negative) H 01/06/21 12:20 Urine WBC (Auto) 10-30 /hpf (0-5) H 01/06/21 12:20 Urine RBC (Auto) 5-10 /hpf (0-4) H 01/06/21 12:20 U Hyaline Cast (Auto) >30 /lpf (0-5) H 01/06/21 12:20 U Epithel Cells (Auto) >30 /lpf (0-5) H 01/06/21 12:20 Urine Bacteria (Auto) Negative (Negative) 01/06/21 12:20 01/06/21 13:08 Aerobic Blood Culture - Final Blood No growth in Aerobic bottle after 5 days. Anaerobic Blood Culture - Final No growth in Anaerobic bottle after 5 days. 01/06/21 12:00 Aerobic Blood Culture - Final Blood No growth in Aerobic bottle after 5 days. Anaerobic Blood Culture - Final No growth in Anaerobic bottle after 5 days. 01/10/21 08:54 Aerobic Blood Culture - Preliminary Blood No growth in Aerobic bottle after 24 hours. Anaerobic Blood Culture - Preliminary No growth in Anaerobic bottle after 24 hours. 01/10/21 09:03 Aerobic Blood Culture - Preliminary Blood No growth in Aerobic bottle after 24 hours. Anaerobic Blood Culture - Preliminary No growth in Anaerobic bottle after 24 hours. 01/07/21 16:10 Escherichia coli Shiga Toxins Test - Final Stool Stool Culture - Final No Salmonella isolated, No Shigella isolated, No Campylobacter jejuni isolated. 01/07/21 19:02 Aerobic Blood Culture - Preliminary Blood No growth in Aerobic bottle after 48 hours. Anaerobic Blood Culture - Preliminary No growth in Anaerobic bottle after 48 hours. 01/07/21 19:20 Aerobic Blood Culture - Preliminary Blood No growth in Aerobic bottle after 48 hours. Anaerobic Blood Culture - Preliminary No growth in Anaerobic bottle after 48 hours. 01/06/21 12:20 Urine Culture - Final Urine,Clean Catch No growth - less than 1,000 colonies/mL. Laboratory Tests 01/06/21 12:44 SARS-CoV-2 (PCR) NEGATIVE Electrocardiogram Date: 01/06/21 Sinus tachycardia, rate 109 bpm Nonspecific T wave abnormality Abnormal ECG No previous ECGs available Confirmed by Marco Chiang ([id number]) on 01/09/2021 10:09:42 AM Chest X-Ray Date: 01/06/21 Findings: + NAD Echocardiogram Date: 01/08/21 Normal LV size and systolic function. EF 55-60%. No regional wall motion abnormalities. Mod concentric LVH. No significant diastolic dysfunction. Mild MR Very small posterior pericardial effusion. No echo evidence of tamponade physiology Normal estimated RVSP; RVSP 22 mmHg
[2021-01-11] MEDS ORDERED: ONDANSETRON INJ 2 MG/ML 2 ML VIAL ONE (14:53)
[2021-01-11] MEDS ORDERED: LIDOCAINE 2% 2 ML VIAL/AMP(20MG/ML) INFIL ONE (14:53)
[2021-01-11] MEDS ORDERED: PROPOFOL IV EMULSION 10 MG/ML 20 ML VIAL IV ONE (14:53)
[2021-01-11] MEDS ORDERED: fentaNYL citrate 100 MCG/2 ML VIAL ONE (14:53)
--- NOTE | 2021-01-11 15:26 | History & Physical Bridge Note ---
Date of Service January 11, 2021 History & Physical Bridge Note I have examined the patient, reviewed the History & Physical and in the interval since the performance of the History & Physical I have noted the following changes of clinical significance: no changes noted EUS/ERCP Patient was explained in detail regarding risks, benefits, limitations and alternatives of the above endoscopic procedure. Risks of intravenous sedation used for procedure were also explained. Risks include, but not limited to perfor ation, bleeding, infection, respiratory distress, cardiac arrest and . Patient is also aware about the possibility of missed lesion. Patient's questions were answered. The patient verbalized understanding the information and agreed to undergo the procedure.
[2021-01-11] MEDS ORDERED: ePHEDrine sulfate 50 MG/ML AMP IV PRN (15:29)
[2021-01-11] MEDS ORDERED: ONDANSETRON INJ 2 MG/ML 2 ML VIAL IV PRN (15:29)
[2021-01-11] MEDS ORDERED: HYDROmorphone INJ 2 MG/ML SYR/VIAL IV PRN (15:29)
[2021-01-11] MEDS ORDERED: ATROPINE SULFATE 0.1 MG/ML 10ML SYR IV PRN (15:29)
[2021-01-11] MEDS ORDERED: fentaNYL citrate 100 MCG/2 ML VIAL IV PRN (15:29)
[2021-01-11] MEDS ORDERED: GLYCOPYRROLATE 0.2 MG/ML VIAL ONE (16:02)
--- NOTE | 2021-01-11 16:31 | Operative Report ---
Post Operative Report Pre & Post Diagnosis Operation Date: 01/11/21 07:00 Pre-Op Diagnosis: acute pancreatitis Post-Op Diagnosis: common bile duct stone I identified the patient and participated in the time-out.: Yes Procedure Operation Date: 01/11/21 07:00 Actual Procedures p Endoscopic Ultrasonography - Luly Garcia MD s Endoscopic Retrograde Cholangiopancreatogram - Luly Garcia MD Surgeon Luly Garcia MD Academic Department Chair None Estimated Blood Loss 0 Findings See Below (Choledocholithiasis removed) Specimens None Description of Procedure EUS/ERCP I attest to the content of the Intraoperative Record and any orders documented therein. Any exceptions are noted below.
--- NOTE | 2021-01-11 16:37 | GI REPORT ---
Patient Name: Larry Saleh Procedure Date: 01/11/2021 3:29 PM Date of : 1975 Admit Type: Inpatient Age: 45 Gender: Male Attending MD: Luly Garcia MD Procedure: Upper GI endoscopy Providers: Luly Garcia MD Referring MD: Yury Fisher M.d. Indications: Abdominal pain Medicines: Propofol per Anesthesia Complications: No immediate complications. Estimated Blood Loss: Estimated blood loss: none. Procedure: Pre-Anesthesia Assessment: - Prior to the procedure, a History and Physical was performed, and patient medications, allergies and sensitivities were reviewed. The patient's tolerance of previous anesthesia was reviewed. - The risks and benefits of the procedure and the sedation options and risks were discussed with the patient. All questions were answered and informed consent was obtained. - Patient identification and proposed procedure were verified prior to the procedure by the physician and the nurse. The procedure was verified in the procedure room. - Pre-procedure physical examination revealed no contraindications to sedation. After obtaining informed consent, the endoscope was passed under direct vision. Throughout the procedure, the patient's blood pressure, pulse, and oxygen saturations were monitored continuously. The Endoscope was introduced through the mouth, and advanced to the second part of duodenum. The upper GI endoscopy was accomplished without difficulty. The patient tolerated the procedure well. Findings: The examined esophagus was normal. The entire examined stomach was normal. The duodenal bulb and second portion of the duodenum were normal. Impression: - Normal esophagus. - Normal stomach. - Normal duodenal bulb and second portion of the duodenum. - No specimens collected. Recommendation: - Perform an upper endoscopic ultrasound (UEUS) today. Luly Garcia MD 01/11/2021 4:36:41 PM This report has been signed electronically. Note Initiated On: 01/11/2021 3:29 PM Number of Addenda: 0 I attest to the content of the Intraoperative Record and orders documented therein, exceptions below {[id number]}
--- NOTE | 2021-01-11 16:42 | GI REPORT ---
Patient Name: Larry Saleh Procedure Date: 01/11/2021 3:30 PM Date of : 1975 Admit Type: Inpatient Age: 45 Gender: Male Attending MD: Luly Garcia MD Procedure: Upper EUS Providers: Luly Garcia MD Referring MD: Yury Fisher M.d. Indications: Elevated liver enzymes, Suspected choledocholithiasis Medicines: General Anesthesia Complications: No immediate complications. Estimated Blood Loss: Estimated blood loss: none. Procedure: Pre-Anesthesia Assessment: - Prior to the procedure, a History and Physical was performed, and patient medications, allergies and sensitivities were reviewed. The patient's tolerance of previous anesthesia was reviewed. - The risks and benefits of the procedure and the sedation options and risks were discussed with the patient. All questions were answered and informed consent was obtained. - Patient identification and proposed procedure were verified prior to the procedure by the physician and the nurse. The procedure was verified in the procedure room. - Pre-procedure physical examination revealed no contraindications to sedation. After obtaining informed consent, the endoscope was passed under direct vision. Throughout the procedure, the patient's blood pressure, pulse, and oxygen saturations were monitored continuously. The scope was introduced through the mouth, and advanced to the second part of duodenum. The upper EUS was accomplished without difficulty. The patient tolerated the procedure well. Findings: ENDOSONOGRAPHIC FINDING: : There was no sign of significant endosonographic abnormality in the ampulla. No masses were identified. One stone was visualized endosonographically in the common bile duct. The stone was round. It was hyperechoic. The maximum diameter of the duct was 5.5 mm. Extensive hyperechoic material consistent with sludge was visualized endosonographically in the gallbladder. Few small stones seen. There was no sign of significant endosonographic abnormality in the visualized portion of the liver. Fatty infiltration seen. Pancreatic parenchymal abnormalities were noted in the entire pancreas. These consisted of hyperechoic strands. PD measured 2 mm in maximum diameter. A few small benign-appearing lymph nodes were visualized in the helena hepatis region. The nodes were triangular, hypoechoic and had well defined margins. There was no sign of significant endosonographic abnormality in the visualized portion of the left adrenal gland. There was no sign of significant endosonographic abnormality involving the celiac trunk. Impression: - There was no sign of significant pathology in the ampulla. - One stone was visualized endosonographically in the common bile duct. - Hyperechoic material consistent with sludge and stones was visualized endosonographically in the gallbladder. - There was no evidence of significant pathology in the visualized portion of the liver. Fatty infiltration seen. - Pancreatic parenchymal abnormalities consisting of hyperechoic strands were noted in the entire pancreas. - A few benign lymph nodes were visualized in the helena hepatis region. - Endosonographic images of the left adrenal gland were unremarkable. - The celiac trunk was endosonographically normal. - No specimens collected. Recommendation: - Perform an ERCP today. Luly Garcia MD 01/11/2021 4:41:55 PM This report has been signed electronically. Note Initiated On: 01/11/2021 3:30 PM Number of Addenda: 0 I attest to the content of the Intraoperative Record and orders documented therein, exceptions below {[id number]}
--- NOTE | 2021-01-11 16:44 | GI REPORT ---
Patient Name: Larry Saleh Procedure Date: 01/11/2021 3:30 PM Date of : 1975 Admit Type: Inpatient Age: 45 Gender: Male Attending MD: Luly Garcia MD Procedure: ERCP Providers: Luly Garcia MD Referring MD: Yury Fisher M.d. Indications: For therapy of bile duct stone(s) Medicines: General Anesthesia Complications: No immediate complications. Estimated Blood Loss: Estimated blood loss: none. Procedure: Pre-Anesthesia Assessment: - Prior to the procedure, a History and Physical was performed, and patient medications, allergies and sensitivities were reviewed. The patient's tolerance of previous anesthesia was reviewed. - The risks and benefits of the procedure and the sedation options and risks were discussed with the patient. All questions were answered and informed consent was obtained. - Patient identification and proposed procedure were verified prior to the procedure by the physician and the nurse. The procedure was verified in the procedure room. - Pre-procedure physical examination revealed no contraindications to sedation. After obtaining informed consent, the scope was passed under direct vision. Throughout the procedure, the patient's blood pressure, pulse, and oxygen saturations were monitored continuously. The Scope was introduced through the mouth, and advanced to the duodenum and used to inject contrast into the bile duct. The ERCP was accomplished without difficulty. The patient tolerated the procedure well. Findings: The 4th grade math teacher film was normal. The esophagus was successfully intubated under direct vision. The scope was advanced to a normal major papilla in the descending duodenum without detailed examination of the pharynx, larynx and associated structures, and upper GI tract. The upper GI tract was grossly normal. A 0.035 inch straight standard wire was passed into the biliary tree. The Fusion OMNI sphincterotome was passed over the guidewire and the bile duct was then deeply cannulated. Contrast was injected. I personally interpreted the bile duct images. Ductal flow of contrast was adequate. Image quality was adequate. Contrast extended to the main bile duct. Opacification of the entire biliary tree was successful. The maximum diameter of the ducts was 8 mm. Biliary sphincterotomy was made with a monofilament traction (standard) sphincterotome using ERBE electrocautery. There was no post-sphincterotomy bleeding. The biliary tree was swept with an 11.5 mm balloon starting at the bifurcation. One stone was removed. No stones remained. Indomethacin 100 mg was given via suppository to decrease the risk of post-ERCP pancreatitis (PEP). PD was not cannulated. Impression: - Choledocholithiasis was found. Complete removal was accomplished by biliary sphincterotomy and balloon extraction. Recommendation: - Return patient to hospital [facility] for ongoing care. - Refer to a surgeon for cholecystectomy this admission. Luly Garcia MD 01/11/2021 4:44:19 PM This report has been signed electronically. Note Initiated On: 01/11/2021 3:30 PM Number of Addenda: 0 I attest to the content of the Intraoperative Record and orders documented therein, exceptions below {[id number]}
--- NOTE | 2021-01-11 16:52 | Fluoroscopy Report ---
[place] ERCP biliary ductal CLINICAL HISTORY: ERCP TO BE DONE IN THE O.R. COMPARISON STUDY: CT of the abdomen and pelvis January 06, 2021. MRCP January 09, 2021. FLUOROSCOPY TIME: 27 seconds. FLUOROSCOPIC IMAGES: 7 FINDINGS: Fluoroscopy was provided during ERCP. These images demonstrate cannulation of the common bi le duct with balloon sweep through the common bile duct. No biliary ductal dilatation is identified. IMPRESSION: Fluoroscopy provided during ERCP. ACT 112: Negative or not required by law. Electronically signed by: Donn Walter M.D. 01/11/2021 4:51 PM
--- NOTE | 2021-01-11 17:15 | Anesthesiology Progress Note ---
Date of Service January 11, 2021 Anesthesia Post Procedure Vital Signs Vital Signs: Temp Pulse Pulse Pulse Resp BP BP 01/11/21 17:10 69 20 130/77 01/11/21 17:00 74 20 140/77 01/11/21 16:50 77 20 126/75 01/11/21 16:42 36.1 C L 84 18 119/76 01/11/21 15:27 36.7 C 87 18 119/77 01/11/21 15:00 36.5 C 83 18 149/82 H 01/11/21 14:20 82 01/11/21 08:03 36.8 C 90 18 120/78 01/11/21 07:00 90 01/11/21 06:57 36.6 C 91 H 18 115/73 01/11/21 03:03 36.9 C 95 H 18 117/68 01/10/21 23:03 98 H 01/10/21 22:54 36.9 C 97 H 20 132/77 01/10/21 19:13 36.7 C 96 H 18 124/68 Pulse Ox 01/11/21 17:10 95 01/11/21 17:00 93 01/11/21 16:50 97 01/11/21 16:42 94 01/11/21 15:27 96 01/11/21 15:00 95 01/11/21 14:20 01/11/21 08:03 92 01/11/21 07:00 01/11/21 06:57 93 01/11/21 03:03 92 01/10/21 23:03 01/10/21 22:54 94 01/10/21 19:13 93 Pain Intensity Abdomen: Pain Intensity: 3 Transfer of Care Handoff Completed per policy Notes Mental Status: alert / awake / arousable and participated in evaluation Patient Amnestic to Procedure: Yes Nausea / Vomiting: adequately controlled Pain: adequately controlled Airway Patency, RR, SpO2: stable & adequate BP & HR: stable & adequate Hydration State: stable & adequate Anesthetic Complications: no major complications apparent and Pt Satisfied with anesthetic care
[2021-01-11] MEDS ORDERED: Nursing to Pharmacy Communication SCH (18:15)
--- NOTE | 2021-01-11 20:43 | Hospitalist Progress Note ---
Date of Service January 11, 2021 Assessment & Plan (1) Sepsis: Plan: Sepsis with acute organ dysfunctionacute renal failuresource still not clear; rising lipase raises the question of primary pancreatic pathology No more fever spikes is positive; cultures negative to datelikely not bacteremic illness; no change in antibiotics at presentnoted improving leukocytosis Hypotension was clearly volume responsive. Procal was elevated. Concern of pancreatic malignancy. MRCP was negative. Had discussion with GI and patient. will likely require ERCP tomorrow. Bilirrubin has decreased and fever has also subsided. will continue above treatment plan. will benefit from ERCP ir biopsy is needed. Patient will be having ERCP and EUS later today. awaiting results. Labs are improving. (2) Pancreatitis: Plan: CT with peripancreatic stranding; given rising lipase acute pancreatitis seems high on the differential but high spikes suggest superimposed bacterial infection GI input as above.l (3) Acute hyponatremia: Plan: Mild and improvingfollow (4) Lymphadenopathy: Plan: With marked lymphadenopathy noted on CAT scan; given acuity intuitively would seem benign more likely but keep an open mind-comment about left upper quadrant nodule more concerning Might need biopsy at some point (5) Acute renal insufficiency: Plan: Resolved. (6) Abnormal LFTs: Plan: Probably related to pancreatitis (7) Acute respiratory failure with hypoxia: Plan: hypervolemicDC IV fluids, BNP supports Somewhat unusual with normal kidney function and if normal cardiac function -1 dose Lasix, preemptive potassium 2D echo May need Lasix to be repeated Plan: Replace Phos Admission and Anticipated Discharge Date Admission Date: January 06, 2021 Subjective Patient is hungry but reports no new symptoms. Review of Systems Review of Systems: All systems reviewed & are unremarkable except as noted in HPI & below Physical Exam Physical Exam: Constitutional and general: no distress, looks biologic age Head and face: Mild puffiness, atraumatic Eyes: Minimal scleral icterus, extraocular movements normal Neck: Supple, no JVD Musculoskeletal: No acute joint swelling, no bony abnormalities Skin/dermatologic/integument: No rash, no purpura Hematologic and lymphatic: pallor mild, no petechia Gastrointestinal/abdomen: Soft, nonsurgical Neurologic: Cranial nerves intact, nonfocal Psychiatry: Awake, alert, pleasant, communicative Cardiovascular: Heart rhythm regular, no rub, no murmur, no gallop Respiratory: Chest movements equal, no use of accessory muscles, no adventitious sounds Extremities: edema +, no cyanosis Results & Data Results [facility] Vital Signs (Past 12 Hours) Vital Signs Temp Pulse Pulse Pulse Resp BP BP 01/11/21 20:20 36.4 C L 70 20 115/76 01/11/21 18:55 36.4 C L 67 20 128/76 01/11/21 18:27 36.6 C 83 20 117/83 01/11/21 17:54 36.6 C 75 18 143/83 H 01/11/21 17:35 36.3 C L 65 18 147/86 H 01/11/21 17:19 36.0 C L 71 20 148/84 H 01/11/21 17:10 69 20 130/77 01/11/21 17:00 74 20 140/77 01/11/21 16:50 77 20 126/75 01/11/21 16:42 36.1 C L 84 18 119/76 01/11/21 15:27 36.7 C 87 18 119/77 01/11/21 15:00 36.5 C 83 18 149/82 H 01/11/21 14:20 82 Pulse Ox 01/11/21 20:20 94 01/11/21 18:55 94 01/11/21 18:27 94 01/11/21 17:54 94 01/11/21 17:35 94 01/11/21 17:19 94 01/11/21 17:10 95 01/11/21 17:00 93 01/11/21 16:50 97 01/11/21 16:42 94 01/11/21 15:27 96 01/11/21 15:00 95 01/11/21 14:20 PG Care Time/CCT Total # of Minutes Spent Total Time Spent with Patient: Total time spent is greater than 50% in coordination of care (as documented) at patient's floor/unit and/or counseling patient: Coding Level of Care Code 15477 Subseq Hosp Care Lvl 2 Diagnoses Sepsis A41.9 Pancreatitis K85.90 Acute hyponatremia E87.1 Lymphadenopathy R59.1 Acute renal insufficiency N28.9 Abnormal LFTs R94.5 Acute respiratory failure with hypoxia J96.01
[2021-01-11] MEDS: ACETAMINOPHEN 325 MG TAB PO PRN (23:46)
[2021-01-12 07:37] LABS: Albumin Level 2.2 gm/dl (3.4-5.0); Calcium 8.3 mg/dl (8.5-10.1); Creatinine Clr Calc Pharmacy 149.3 ml/min; Est GFR (African American) 126.3 ml/min; Magnesium 2.5 mg/dl (1.8-2.4)
[2021-01-12 07:50] LABS: Albumin Globulin Ratio 0.5 (0.9-2); Bilirubin,Total 2.4 mg/dl (0.2-1); Globulin 4.3 gm/dl (2.5-4.0); Total Protein 6.5 gm/dl (6.4-8.2)
[2021-01-12] MEDS: ENOXAPARIN INJ 40 MG/0.4 ML SYR SQ SCH (08:24)
[2021-01-12] MEDS: NICOTINE 14 MG/24 HR PATCH TD SCH (08:24)
--- NOTE | 2021-01-12 08:59 | Gastroenterology Progress Note ---
Date of Service January 12, 2021 Assessment & Plan (1) Lymphadenopathy: (2) Pancreatitis: Plan: Pt is a 45 yo male seen for pancreatitis and lymphadenopathy (retroperitoneal and mesenteric). EGD/EUS/ERCP done 01/[address] Garcia: choledocholithiasis found, removed; biliary sphincterectomy performed - Consult Surgery to eval for possible cholecystectomy - LFTs increased today; continue to trend - Recall [facility] prn Admission and Anticipated Discharge Date Admission Date: January 06, 2021 Supervising Physician Co-Signing Physician Notes I have seen and examined the patient with PAM Bear whose note reflects our findings and plan. Patient s/p ERCP and feels well today. hungry. Bili noted to be elevated. Suspect will drop tomorrow. Surgery to see patient for eventual colonscopy. Subjective Pt feels great, denies any abd pain, n/v, tolerated low fat diet this AM Review of Systems Review of Systems: All systems reviewed & are unremarkable except as noted in HPI & below Physical Exam Constitutional: WD/WN, vitals as above well groomed, cooperative and comfortable Eyes: PERRL, conjunctivae normal, anicteric sclerae ENMT: external ear and nose normal, oropharynx normal Respiratory: normal respiratory effort, lungs clear to auscultation Cardiovascular: RRR, no murmur, no edema Gastrointestinal (Abdomen): Hypoactive BS, non tender, soft Skin: no rashes, warm and dry no jaundice Psychiatric: A+Ox3, euthymic affect Lymphatic: no lymphedema Results & Data ([facility]) Vital Signs (Past 12 Hours) Vital Signs Temp Pulse Pulse Pulse Resp BP Pulse Ox 01/12/21 07:23 72 01/12/21 06:25 36.5 C 72 16 115/72 93 01/12/21 02:40 63 01/11/21 23:39 36.5 C 65 16 127/73 94 01/11/21 21:12 36.4 C L 70 20 127/80 94
[2021-01-12 09:46] LABS: Basophils # (auto) 0.02 K/uL (0-0.2); Basophils % (auto) 0.2 %; Eosinophils # (auto) 0.38 K/uL (0-0.5); Eosinophils % (auto) 2.9 %; Hematocrit (blood only) 32.6 % (42-52); Hemoglobin 10.6 g/dL (14.0-18.0); Immature Granulocytes # (auto) 0.65 K/uL (0.00-0.02); Immature Granulocytes % (auto) 4.9 %; Lymphocytes # (auto) 2.39 K/uL (1.2-3.4); Mean Corpuscular Hemoglobin 29.9 pg (25-34); Mean Corpuscular Hgb Conc 32.5 g/dL (32-36); Mean Corpuscular Volume 91.8 fL (80-100); Mean Platelet Volume 9.2 fL (7.4-10.4); Monocytes # (auto) 0.86 K/uL (0.11-0.59); Monocytes % (auto) 6.5 %; Neutrophils # (auto) 8.95 K/uL (1.4-6.5); Neutrophils % (auto) 67.5 %; Platelet Count 683 K/uL (130-400); RDW Standard Deviation 50.1 fL (36.4-46.3); Red Blood Count 3.55 M/uL (4.7-6.1); White Blood Count 13.25 K/uL (4.8-10.8)
--- NOTE | 2021-01-12 11:18 | Progress Note ---
Date of Service January 12, 2021 Assessment & Plan (1) Sepsis: Plan: 45 year-old male with unknown etiology of sepsis. CT scan with findings of inflammatory changes surrounding pancreas with retroperitoneal lymphadenopathy, LUQ nodule, and dilated appendix. Elevated lipase up to 2483. Leukocytosis persists 23K today. t. bili has normalzied, LFTs are slightly increased Leukocytosis 23K today ?? Biliary obstruction from lesion causing cholangitis and pancreatitis? Plan: Keep NPO for EUS/ERCP As for the dilated appendix, patient is completely asymptomatic with no abdominal pain, guarding in RLQ. Continue IV antibiotics monitor labs Will continue to follow (2) Pancreatitis: (3) Abnormal LFTs: (4) Lymphadenopathy: (5) Leukocytosis: Plan: Dr. Munoz has seen patient and agrees with above 01/12/2021, 11:15AM base on ERCP and endo U/S finding, - CBD stone, gallbladder stone and sludge, I reviewed ERCP and U/S finding with pt, I recommend to do laparoscopic cholecystectomy, possible open or cholangiogram, D/W benefits, risks and alternatives of the surgery, pt dose not want to have cholecystectomy surgery this time, pt wants to go home today, regular diet, F/U me 2 weeks, , i also indicted pt may develop worse symptoms, pt should come back to ER , pt understood, I answered all questions,sign off today, please call with questions , Thanks, Admission and Anticipated Discharge Date Admission Date: January 06, 2021 Supervising Physician Co-Signing Physician Notes I have seen and examined the patient with PAM Bear whose note reflects our findings and plan. Patient s/p ERCP and feels well today. hungry. Bili noted to be elevated. Suspect will drop tomorrow. Surgery to see patient for eventual colonscopy. Subjective Pt feels great, denies any abd pain, n/v, tolerated low fat diet this AM F/U ERCP, CBD stone , removed, GI recommend to do cholecystectomy, Review of Systems Constitutional: + fever, + chills and + body aches Eyes: no problem reported Ear, Nose, Mouth, Throat: no problem reported Respiratory: + dyspnea and + dyspnea on exertion Cardiovascular: + chest pain and + dyspnea Gastrointestinal: no abdominal pain, no nausea and no vomiting Genitourinary: no dysuria Musculoskeletal: + back pain Integumentary: no rash and no lesions Neurologic: + generalized weakness; no localized weakness Psychiatric: no behavioral changes Hematologic / Lymphatic: no easy bleeding and no easy bruising Physical Exam Constitutional: WD/WN, vitals as above Eyes: PERRL, conjunctivae normal, anicteric sclerae Neck: trachea midline, no thyromegaly Respiratory: normal respiratory effort, lungs clear to auscultation Cardiovascular: RRR, no murmur, no edema Gastrointestinal (Abdomen): normal bowel sounds, soft, nontender, no hepatosplenomegaly soft, NT, ND, BS + Musculoskeletal: no cyanosis or clubbing, extremities motor strength 5/5 Neurologic: patellar DTR's 2+ bilat, sensation intact Psychiatric: A+Ox3, euthymic affect Results & Data ([facility]) Vital Signs (Past 12 Hours) Vital Signs Temp Pulse Pulse Resp BP Pulse Ox 01/12/21 07:23 72 01/12/21 06:25 36.5 C 72 16 115/72 93 01/12/21 02:40 63 01/11/21 23:39 36.5 C 65 16 127/73 94 Laboratory Results Abnormal lab results 01/12/21 01/12/21 Range/Units 06:16 06:16 WBC 13.25 H D (4.8-10.8) K/uL RBC 3.55 L (4.7-6.1) M/uL Hgb 10.6 L (14.0-18.0) g/dL Hct 32.6 L (42-52) % RDW Std Deviation 50.1 H (36.4-46.3) fL RDW Coeff of Omar 15.0 H (11.5-14.5) % Plt Count 683 H (130-400) K/uL Neut # (Auto) 8.95 H (1.4-6.5) K/uL [place] # (Auto) 0.86 H (0.11-0.59) K/uL Immature Gran # (Auto) 0.65 H (0.00-0.02) K/uL Chloride 108 H (98-107) mmol/L Fasting Glucose 114 H (70-99) mg/dl Calcium 8.3 L (8.5-10.1) mg/dl Magnesium 2.5 H (1.8-2.4) mg/dl Total Bilirubin 2.4 H D (0.2-1) mg/dl AST 257 H (15-37) U/L ALT 174 H (12-78) U/L Alkaline Phosphatase 330 H D (45-117) U/L Albumin 2.2 L (3.4-5.0) gm/dl Globulin 4.3 H (2.5-4.0) gm/dl Albumin/Globulin Ratio 0.5 L (0.9-2)
[2021-01-12] MEDS ORDERED: metroNIDAZOLE 500 MG TAB PO ONE (11:30)
[2021-01-12] MEDS ORDERED: CIPROFLOXACIN 500 MG TAB PO ONE (11:30)
[2021-01-12] MEDS: PANTOprazole 40 MG in SYRINGE 0 ML IV SCH (11:43)
--- NOTE | 2021-01-13 07:30 | Discharge Summary ---
Date of Service January 12, 2021 Admission HPI Per Admitting Provider Larry Saleh is a 45-year-old male with no significant past medical or surgical history presenting with 5 days of fever as well as body aches, abdominal pain and back pain. Patient reports that his fever began 5 days ago. He has had a fever daily as high as 104. Fever is temporarily relieved by Tylenol but then quickly returns, is associated with body aches and headache. Patient developed diarrhea yesterday. Several episodes of watery, nonbloody diarrhea. Today he developed low back pain as well as crampy, lower abdominal pain. He also notes decreased urination today. He was seen at [place] [facility] with these complaints yesterday and was noted to have elevation of LFTs and creatinine. He was discharged home. Patient was recently on vacation at [place], [place] with friends. No sick contacts. He denies chest pain, palpitations, shortness of breath, nausea, vomiting, rash. No additional complaints at this time Upon arrival patient febrile at 39.4, tachycardic at 122 bpm, blood pressure at its lowest was 90/54. No respiratory distress, adequate oxygenation on room air. ER course: Ceftriaxone, doxycycline, Benadryl, Tylenol, normal saline x3 L Principal Diagnosis sepsis Discharge Exam Constitutional and general: no distress, looks biologic age Head and face: Mild puffiness, atraumatic Eyes: Minimal scleral icterus, extraocular movements normal Neck: Supple, no JVD Musculoskeletal: No acute joint swelling, no bony abnormalities Skin/dermatologic/integument: No rash, no purpura Hematologic and lymphatic: pallor mild, no petechia Gastrointestinal/abdomen: Soft, nonsurgical Neurologic: Cranial nerves intact, nonfocal Psychiatry: Awake, alert, pleasant, communicative Cardiovascular: Heart rhythm regular, no rub, no murmur, no gallop Respiratory: Chest movements equal, no use of accessory muscles, no adventitious sounds Extremities: edema +, no cyanosis Discharge Data Allergies Allergy/AdvReac Type Severity Reaction Status Date / Time shellfish derived Allergy Severe Swelling Unverified 01/06/21 13:41 including Face Egg Derived Allergy Intermediate Abdominal Unverified 01/06/21 13:41 Pain and Constipation Consultations 01/06/21 16:52 ED Decision to Admit Stat 01/06/21 19:37 Consult General Surgery Routine 01/07/21 13:27 Consult Gastroenterology Routine 01/09/21 08:49 Consult Infectious Diseases Routine 01/09/21 11:54 Consult Patient Services Routine 01/12/21 08:40 Consult General Surgery Routine Procedures Performed Operation Date: 01/11/21 07:00 Actual Procedures p Endoscopic Ultrasonography - Luly Garcia MD s Endoscopic Retrograde Cholangiopancreatogram - Luly Garcia MD Ordered Studies 01/06/21 12:23 CT abd pelvis wo con Stat 01/06/21 14:33 CT abd pelvis IV con only Stat 01/07/21 17:01 CT chest diagnostic wo con Stat 01/09/21 11:41 MR MRCP Routine 01/11/21 [place] ERCP biliary ductal Routine 01/11/21 11:42 US upper EUS PACS images Routine Hospital Course (1) Sepsis: Sepsis with acute organ dysfunctionacute renal failuresource still not clear; rising lipase raises the question of primary pancreatic pathology No more fever spikes is positive; cultures negative to datelikely not bacteremic illness; no change in antibiotics at presentnoted improving leukocytosis Hypotension was clearly volume responsive. Procal was elevated. Concern of pancreatic malignancy. MRCP was negative. Had discussion with GI and patient. will likely require ERCP tomorrow. Bilirrubin has decreased and fever has also subsided. will continue above treatment plan. will benefit from ERCP ir biopsy is needed. EGD/EUS/ERCP done 01/[address] Garcia: choledocholithiasis found, removed; biliary sphincterectomy performed Labs are improving. will continue antibiotics for a total of 10 days s/p infection. recommend followup with Gen suergy for outpatient followup for cholescystectomy. Patient wanted to defer surgery as he did not feel he was strong enough to have it done at this moment. (2) Pancreatitis: CT with peripancreatic stranding; given rising lipase acute pancreatitis seems high on the differential but high spikes suggest superimposed bacterial infection GI input as above. (3) Acute hyponatremia: Mild and improvingfollow (4) Lymphadenopathy: With marked lymphadenopathy noted on CAT scan; given acuity intuitively would seem benign more likely but keep an open mind-comment about left upper quadrant nodule more concerning Might need biopsy at some point (5) Acute renal insufficiency: Resolved. (6) Abnormal LFTs: Probably related to pancreatitis (7) Acute respiratory failure with hypoxia: hypervolemicDC IV fluids, BNP supports Somewhat unusual with normal kidney function and if normal cardiac function -1 dose Lasix, preemptive potassium 2D echo May need Lasix to be repeated Replace Phos Total Time Total Time Spent Total Time Spent (In Minutes): 32 Discharge Plan Discharge Items Patient Disposition: Home - Self-Care Reason For Visit: ABDOMINAL PAIN, DECREASED UOP Discharge Diagnosis: gallstone Activity: Resume your previous activity Non-emergency contact: Primary Care Provider Call non-emergency contact if: you have any medication questions Follow-up/Referrals: Galilea Cat [Primary Care Provider] - (PLEASE CALL YOUR PRIMARY CARE PROVIDER TO SET UP A FOLLOW-UP DISCHARGE APPOINTMENT FOR 7-10 DAYS.) Shen Munoz MD [Physician] - (Please call office above to schedule an outpatient follow-up in 2 weeks to discuss gallbladder removal.) Diet: Low Fat Esther Attending Provider Instructions: You were seen for an abdominal infection. You were found to have a stone in your biliary duct and this was removed. Will recommend to continue antibiotics for 10 days. Recommend close folllowup with your PCP and Certified Hand Therapist. Will recommend followup with Surgery for outpatient removal of your gallbladder. Addtl Lease Purchase Driver Provider Instructions: Please call [facility] General Surgery office at [phone] to make an outpatient follow-up with Dr. Munoz to discuss outpatient gallbladder removal. Recommend low fat diet in interim until gallbladder removal Pending Studies at Discharge: No Stand-Alone Forms: My [facility] [employer], Smoking Cessation Medications and DC Order Prescriptions: New ciprofloxacin HCl 500 mg tablet 500 mg PO BID Qty: 20 RF: 0 metronidazole [Flagyl] 500 mg tablet 500 mg PO Q8H 10 Days Qty: 30 RF: 0 Continued acetaminophen [Tylenol Extra Strength] 500 mg Tablet 500 mg PO Q6H PRN (Reason: Pain) RF: 0 esomeprazole magnesium [Nexium] 20 mg Capsule,Delayed Release(Dr/Ec) 20 mg PO DAILY RF: 0 Discharge Orders: Discharge Order (Routine); Ordered 01/12/21 Ordered By: Yury Fisher Admission Data Admit Date/Time: 01/06/21 17:03 Attending Provider: Yury Fisher Admit Provider: Namrata Reyes Primary Care Provider: Galilea Cat Other Providers: Namrata Reyes ; Daniel Bolton ; Roger Galicia ; Geoffrey Carballo ; Anastacio Garcia ; Andry Reyes I. ; Elijah Villaseñor II ; Rochelle Sanders ; Clifford Rolle ; Shen Munoz Other Interventions: Discharge Summary Assessment (RN) Last Done: 01/12/21 12:51 Coding Level of Care Code D/C DAY MANAGEMENT >30 MINS Diagnoses Sepsis A41.9 Pancreatitis K85.90 Acute hyponatremia E87.1 Lymphadenopathy R59.1 Acute renal insufficiency N28.9 Abnormal LFTs R94.5 Acute respiratory failure with hypoxia J96.01
== END 2021-01-12 13:22 | disposition home or self-care (01) | DRG 871 ==
LOC: ED 11:18 → 2W 17:03 → SUATTDRO 17:03 → 2W 18:31